=== PATIENT | male | born 1965 | race African-American/Black ===

== ENCOUNTER 2022-08-22 12:04 | Outpatient (REF) | payer OTHER, SELFPAY ==
[2022-08-22 12:57] LABS: Hematocrit 43.6 % (42.0-52.0); Hemoglobin 14.4 g/dl (14.0-18.0); Mean Corpuscular Hemoglobin 30.1 pg (27.0-33.0); Mean Platelet Volume 8.8 fL (9.4-12.4); Platelet Count 350 X10*3/uL (160-400); Red Blood Count 4.79 X10*6/uL (4.60-5.80); Red Cell Distribution Width 15.8 % (11.0-16.0)
[2022-08-22 13:28] LABS: Alanine Aminotransferase 23 U/L (0-40); Albumin Level 4.3 g/dL (3.5-5.0); Alkaline Phosphatase 65 U/L (39-117); Anion Gap 16 (12-20); Aspartate Amino Transferase 20 U/L (5-37); Bilirubin Total 0.3 mg/dL (0.0-1.0); Blood Urea Nitrogen 10 mg/dL (9-16); Calcium 9.8 mg/dL (8.4-10.2); Carbon Dioxide 27 mmol/L (22-29); Chloride 101 mmol/L (96-108); Cholesterol 229 mg/dL; Estimated Glomerular Filt Rate > 60; Glucose Fasting 90 mg/dL (60-99); HDL Cholesterol 45 mg/dL; LDL Cholesterol Calculated 152 mg/dl; Sodium 139 mmol/L (135-145); Total Protein 7.4 g/dL (6.5-8.0); Triglycerides 163 mg/dL
[2022-08-22 13:41] LABS: Prostate Specific Antigen Scr 1.13 ng/mL (<0.05-4.0); TSH reflex Free T4 1.15 uIU/mL (0.32-4.0)
== END 2022-08-22 12:05 | disposition home or self-care (01) ==
LOC: HO.LAB 12:04
PROVIDERS: PCP Internal Medicine; Visit Provider Physician Assistant
DX: Z12.5 Encounter for screening for malignant neoplasm of prostate (principal); Z13.220 Encounter for screening for lipoid disorders; Z13.29 Encounter for screening for other suspected endocrine disorder
CPT/HCPCS: 36415; 80053; 80061; 84153; 84443; 85027

== ENCOUNTER → 2022-10-08 14:01 | Outpatient (BNVA) | payer OTHER, SELFPAY | PROVIDERS: PCP Internal Medicine; Visit Provider Urology | DX: L29.1 Pruritus scroti (principal); L72.3 Sebaceous cyst; N30.10 Interstitial cystitis (chronic) without hematuria | CPT/HCPCS: 99202 ==

== ENCOUNTER 2022-11-24 08:54 | Day surgery (SDC) | payer OTHER, SELFPAY ==
[2022-11-24] VITALS (8 sets, daily range): BP systolic 88–135; BP diastolic 51–84; PULSE 81–95; RESP 12–16; TEMP 36.4–36.9; O2SAT 94–96; BMI 35.6
--- NOTE | 2022-11-24 10:20 | P.CONAN_ITS ---
[facility] Active Problems Active Problems: All Active Problems (Updated 10/08/22 @ 14:44 by Chi Hernandez MD) Sebaceous cyst (Acute) Scrotal itching (Acute) Colon cancer screening (Acute) Annual physical exam (Acute) Hypercholesterolemia (Acute) BPH (benign prostatic hyperplasia) (Acute) Obese (Acute) Tobacco dependence (Acute) Plantar callus (Acute) Testicular cyst (Acute) DDD (degenerative disc disease), lumbar (Acute) Past Medical History Medical History BPH (benign prostatic hyperplasia) Low back pain Smoker Family History Family History Mother No problems noted. Father CVD (cardiovascular disease) FH: HTN (hypertension) Diabetes Gastric cancer Daughter Healthy female adolescent Brother Gastric cancer Family history of problems with anesthesia: No Surgical History Surgical History History of testicular surgery S/P hernia surgery History of Problems with Anesthesia: No Social History Social History Housing: Apartment Alcohol intake: never Patient Tobacco Use Status: Current everyday Tobacco user Cigarettes Per Day: 15 Years Smoked: 25 e-Cigarette/Vaping Use: Never Used Use of substances other than those prescribed or required for medical reasons: Yes Substance Use Type Other:: smoking Substance Use Frequency: Weekly Are you DNR?: No Advance Directives: No Advance Directives Information Provided: Yes service: No Current occupational status: employed and unemployed Cognitive needs: No Hearing needs: No Vision needs: No Meds Allergies Allergy/AdvReac Type Severity Reaction Status Date / Time bupropion [From WELLBUTRIN] Allergy Unknown SYNCOPE, Verified 11/21/22 09:01 SEIZURE Active Medications: Current Medications Lactated Ringer's (Lr) 1,000 mls @ 80 mls/hr IVCONT .[id number] GOLDY Exam Exam Date and Time: November 24, 2022 1020 Height,Weight and Vital Signs: Height 6 ft 1 in Weight 122.47 kg Airway Mallampati Class: II TM Dist: >3cm Neck ROM: Full Assessment and Plan Assessment Anesthesia Assessment: Anesthesia Plan Discussed and Chart Reviewed Final Anesthetic Review Family History of Problems with Anesthesia: No History of Problems with Anesthesia: No NPO: Yes ASA Class: II Final Preanesthetic Review: No Changes in Pt Med Stat, Meds/Allgs Chart Reviewed, Consent Obtained/Reviewed and Anes Risks/Benef Reviewed Patient Risk: Low Procedure Risk: Low Anesthetic Plan Anesthetic Plan: GA Disposition: Standard PACU
[2022-11-24] MEDS: Lactated Ringers 1,000 ML 80 ML IVCONT (10:44)
--- NOTE | 2022-11-24 12:43 | MHC.SHP ---
Pre-Procedural Eval Section A Date of Service: 11/24/22 The patient is an INPATIENT: No Changes since office visit: No Cold of Flu in the past 2 weeks, No New Medical Problems, No Changes in Medication and No Patient answered all questions The History & Physical has been completed within 30 days and I have reviewed it.: No Section B Chief Complaint: Sebaceous cyst Details of Present Illness: sebaceous cyst of scrotum Relevant Family History (Specify if Yes): No Relevant Social History: None Present Medications: see Short Stay Collaborative assessment Medical History: No relevant PMH History of Previous Operations: No relevant previous surgery Allergies: Allergies Allergy/AdvReac Type Severity Reaction Status Date / Time bupropion [From WELLBUTRIN] Allergy Unknown SYNCOPE, Verified 11/21/22 09:01 SEIZURE Review of Systems Sugical H&P ROS: Negative: Constitution, Cardiovascular, Respiratory, Neurological, Psychiatric, Hem-Onc, Allergic/Immunologic, Gastrointestinal, Genitourinary, Musculoskeletal, Integumentary, Endocrine and Eyes/Ears/Nose/Throat Exam Surgical H&P Exam: Normal: HEENT, Normal: Heart, Normal: Lungs, Normal: Extremities, Normal: Abdomen, Normal: Skin and Normal: Neurological Plan Diagnosis/Plan: Unchanged (sebaceous cyst removal) I have reviewed the history and physical and performed a pertinent physical examination on my patient. No changes have occurred unless specified. Time Spent With Patient Time: Total time managing care of this patient today ____ minutes.
--- NOTE | 2022-11-24 13:39 | P.OP_ITS ---
Operative Note Operative Note Date of Service: 11/24/22 Narrative: PreOperative Diagnosis: left scrotal cyst Post Operative Diagnosis: large left scrotal cyst Procedure: removal left scrotal cyst - 3.5 cm Surgeon: Dr Chi Hernandez Anesthesia: general Indications for procedure: large left scrotal cyst approximately 3.5 cm in superior portion of left scrotum. is mobile consistent with either a sebaceous cyst or question of lipoma. Procedure: After informed consent was verified the patient was brought to the operating room and placed in a supine position. Anesthesia was administered per protocol. The patient was prepped and draped in a sterile fashion. Safety pause time-out was performed. Antibiotics were given. Local anesthetic was injected for perioperative pain management. Injection consisted of bupivacaine and lidocaine. 1 1/2 in incision was made running on the lateral aspect of the cyst. Appears to have prior procedures therapies to be in all incision site directly above the cyst . Sharp dissection was taken to release the cyst from its surroundings. There was a thickened capsule. The cyst itself felt that it could be either a sebaceous cyst or lipoma. Once the cyst was removed the base of the cyst area was cauterized Trial bleeding. Single 3-0 Vicryl was placed to allow deep tissue apposition. Int errupted 4-0 chromics were used to reapproximate skin edges. No need for drain placement. He tolerated procedure well and after dressing was placed was extubated in operating room transferred in stable condition to the recovery area. Pathology: Cyst Drains: none
== END 2022-11-24 15:04 ==
LOC: HO.SSS 08:54
PROVIDERS: PCP Internal Medicine; Visit Provider Urology
PROC: (CPT 11424; principal; 2022-11-24 10:50)
DX: L72.3 Sebaceous cyst (principal); L29.1 Pruritus scroti; M54.50 Low back pain, unspecified; N40.0 Benign prostatic hyperplasia without lower urinary tract symptoms; Z79.899 Other long term (current) drug therapy; Z88.8 Allergy status to other drugs, medicaments and biological substances; F17.210 Nicotine dependence, cigarettes, uncomplicated; Z98.890 Other specified postprocedural states
CPT/HCPCS: 11424; 88304; J0690; J2250; J2405; J2795; J3010

== ENCOUNTER → 2023-01-06 13:29 | Outpatient (BNVA) | payer OTHER, SELFPAY | PROVIDERS: PCP Internal Medicine; Visit Provider Urology | DX: N32.0 Bladder-neck obstruction (principal); L72.3 Sebaceous cyst | CPT/HCPCS: 99212 ==

== ENCOUNTER 2023-05-07 12:25 | Outpatient (REF) | payer OTHER, SELFPAY ==
[2023-05-07 13:26] LABS: Estimated Average Glucose 114 mg/dL; Hemoglobin A1c % 5.6 %
[2023-05-07 13:29] LABS: Alanine Aminotransferase 16 U/L (0-40); Albumin Level 4.1 g/dL (3.5-5.0); Alkaline Phosphatase 64 U/L (39-117); Anion Gap 12 (12-20); Aspartate Amino Transferase 17 U/L (5-37); Bilirubin Total 0.5 mg/dL (0.0-1.0); Blood Urea Nitrogen 11 mg/dL (9-16); Calcium 9.6 mg/dL (8.4-10.2); Carbon Dioxide 25 mmol/L (22-29); Chloride 104 mmol/L (96-108); Cholesterol 222 mg/dL; Estimated Glomerular Filt Rate > 60; Glucose Random 94 mg/dL (60-115); HDL Cholesterol 37 mg/dL; LDL Cholesterol Calculated 159 mg/dl; Potassium 4.4 mmol/L (3.3-5.1); Sodium 137 mmol/L (135-145); Total Protein 7.5 g/dL (6.5-8.0); Triglycerides 133 mg/dL
== END 2023-05-07 12:26 | disposition home or self-care (01) ==
LOC: HO.LAB 12:25
PROVIDERS: PCP Internal Medicine; Visit Provider Internal Medicine
DX: E78.00 Pure hypercholesterolemia, unspecified (principal); E66.9 Obesity, unspecified
CPT/HCPCS: 36415; 80053; 80061; 83036

== ENCOUNTER 2023-09-22 16:05 | Outpatient (AMB) | payer OTHER, SELFPAY ==
[2023-09-22 16:06] VITALS: BP 180/120; PULSE 92; O2SAT 98; BMI 34.0
--- NOTE | 2023-09-22 16:06 | MHC.PC.OV ---
Vital Signs 09/22/23 16:06 09/22/23 16:26 Height 6 ft 1 in Weight 258 lb BMI 34.0 BP 180/120 H 160/100 H Blood Pressure Location Lt brachial Lt brachial Position Sitting Sitting Pulse 92 Pulse Source Pulse Oximeter Pulse Oximetry (%) 98 Oxygen Delivery Method Room Air Intake Visit Reasons: PE/ 3months f/u Senior Business Manager Required: No Spare Parts Clerk: Not Required per policy Accompanied by: Self / Same As Patient Allergies bupropion [From WELLBUTRIN] Allergy (Unknown, Verified 09/22/23 16:07) SYNCOPE, SEIZURE Medication List - Last Reconciled 09/22/23 by Wallace Esparza MD ibuprofen 800 mg PO Q8H PRN nicotine (polacrilex) 4 mg buccal Q2H Tobacco use date assessed: 05/11/23 Dental Screening Dental Screen Date: 09/22/23 Did you have a dental visit in the last 12 months?: No Did you have a dental problem in the last 6 months where you did not have access to dental care?: No Was dental information given to patient?: Patient has dentist HPI PE/ 3months f/u HPI Details 58-year-old obese male smoker with a history of lumbar degenerative disc disease hypercholesterolemia BPH last seen in April 2023 advised colonoscopy. Patient is here for physical exam. Patient 's brother still . syncope 11/2022 and 02/2023. - [facility] smokes marijuana. coughs at night Patient walked here and no chest pain- PFSH Medical History Tobacco dependence Bladder outlet obstruction BPH (benign prostatic hyperplasia) Low back pain Smoker Surgical History S/P hernia surgery History of testicular surgery Family History (Updated 09/22/23 @ 16:30 by Wallace Esparza MD) Mother No problems noted. Father CVD (cardiovascular disease) FH: HTN (hypertension) Diabetes Gastric cancer Daughter Healthy female adolescent Brother Gastric cancer Maternal Grandfather Lung cancer Social History (Updated 09/22/23 @ 16:31 by Wallace Esparza MD) Housing: Apartment Alcohol intake: never Patient Tobacco Use Status: Former Tobacco user Tobacco use type: Cigarette Cigarettes Per Day: 15 Years Smoked: 25- stopped 02/2023 e-Cigarette/Vaping Use: Never Used service: No Current occupational status: employed and unemployed Cognitive needs: No Hearing needs: No Vision needs: No Questionnaire PHQ-9 Over the last 2 weeks, how often have you been bothered by any of the following problems? 1. Little interest or pleasure in doing things: not at all 2. Feeling down, depressed, or hopeless: not at all 3. Trouble falling or staying asleep, or sleeping too much: not at all 4. Feeling tired or having little energy: not at all 5. Poor appetite or overeating: not at all 6. Feeling bad about yourself - or that you are a failure or have let yourself or your family down: not at all 7. Trouble concentrating on things, such as reading the newspaper or watching television: not at all 8. Moving or speaking so slowly that other people could have noticed. Or the opposite - being so fidgety or restless that you have been moving around a lot more than usual: not at all 9. Thoughts that you would be better off or of hurting yourself in some way: not at all Total score: 0 Depression Screening Interpretation: Negative Depression Screening Done: Yes Source: Developed by Drs. Prieto Beltran, Avril Trejo, Quinton Kunz and colleagues, with an educational lissette from [employer]. Thrive Questionnaire Date Thrive assessed: 12/22/22 AUDIT C Alcohol Use Questionnaire (AUDIT-C) 1. How often do you have a drink containing alcohol?: Never 3. How often do you have six or more drinks on one occasion?: Never Total Score: 0 ARGENTINA-7 AMB Questionnaire ARGENTINA-7 Date ARGENTINA - 7 assessed: 12/22/22 Source: Developed by Drs. Prieto Beltran, Avril Trejo, Quinton Kunz and colleagues, with an educational lissette from [employer]. Review of Systems Const Denies poor appetite and Denies weakness Eyes Denies no additional complaints ENT Reports Normal hearing present, Denies dizziness, Denies nasal congestion, Denies tinnitus and Denies sore throat Card Denies chest pain, Denies syncope, Denies rapid heart rate and Denies dyspnea Resp Denies cough and Denies dyspnea GI Denies change in stool character, Reports constipation, Denies diarrhea, Denies nausea and Denies vomiting Denies dysuria and Denies urinary frequency Neuro Reports Normal hearing present, Denies confusion, Denies dizziness, Denies syncope and Denies weakness Psych Denies confusion Physical exam (Primary Care) Vital Signs: Last Vital Signs Pulse 92 09/22/23 16:06 BP 180/120 H 09/22/23 16:06 Pulse Ox 98 09/22/23 16:06 Oxygen Delivery Method Room Air 09/22/23 16:06 BMI result Body Mass Index 34.0 Tobacco/Smoking Status: Tobacco use Status Tobacco use date assessed 05/11/23 09/22/23 16:12 Patient Tobacco Use Status Former Tobacco user 09/22/23 16:12 Tobacco use type Cigarette 09/22/23 16:12 e-Cigarette/Vaping Use Never Used 09/22/23 16:12 PHQ-9: PHQ-9 Score PHQ-9: Total score 0 09/22/23 16:12 Depression Screening Interpretation: Negative Thrive Assessment: Date of Thrive Assessment Date Thrive assessed 12/22/22 09/22/23 16:12 Const General: alert and awake; No confusion Orientation/consciousness: No confusion HENMT Head: Yes normocephalic Ears: external ears normal and TM's normal bilaterally Face and sinus: Yes normal facial exam Mouth: moist mucous membranes Throat: Yes tonsils normal Eyes Conjunctivae: conjunctivae normal Pupils: Equal, round and reactive pupils present and Pupil accommodation reflex normal Direct Ophthalmoscopy: normal light reflex Neck Neck: No lymphadenopathy Thyroid: Thyroid normal Chest Chest palpation & inspection: normal inspection of the chest Resp Effort & Inspection: normal respiratory effort and no audible wheezes Auscultation: clear to auscultation bilaterally, no crackles, no wheezes and lung sounds not diminished Cardio Rate: regular rate Rhythm: regular rhythm Peripheral pulses: radial pulses present and dorsalis pedis present GI Other: Declined rectal exam Palpation (GI): no masses Auscultation: normal bowel sounds and normoactive bowel sounds Rectal Exam - Male: Yes deferred Male General Exam: Yes normal external exam Skin General skin exam: no rashes or lesions noted Rashes: no rashes Neuro General: deep tendon reflexes 2+ bilaterally and No confusion Cranial nerves: Yes Equal, round and reactive pupils present, Yes Midline tongue present, Yes Normal hearing present and Yes Ability to bilaterally elevate shoulders present Cognition (Neuro): normal cognition Gait exam (Neuro): Normal gait present Motor exam (neuro): 5/5 motor strength present throughout Deep tendon reflexes (DTR's): Right brachioradialis reflex intensity grade: 2+, Left brachioradialis reflex intensity grade: 2+, Right patellar reflex intensity grade: 2+ and Left patellar reflex intensity grade: 2+ Extrem General: No edema Assessment and Plan Assessment & Plan (1) Annual physical exam: Code(s): Z00.00 - Encounter for general adult medical examination without abnormal findings (2) Obese: Code(s): E66.9 - Obesity, unspecified Qualifiers: Obesity type: due to excess calories Obesity classification: adult class 1 (BMI 30 - 34.9) Serious obesity comorbidity presence: without serious comorbidity Body mass index: BMI 33.0-33.9 Qualified Code(s): E66.09 - Other obesity due to excess calories; Z68.33 - Body mass index [BMI] 33.0-33.9, adult Plan: Diet and exercise (3) Blood pressure elevated without history of HTN: Code(s): R03.0 - Elevated blood-pressure reading, without diagnosis of hypertension Plan: Advised patient to monitor blood pressure (4) Hypercholesterolemia: Code(s): E78.00 - Pure hypercholesterolemia, unspecified Plan: Avoid fried foods, chicken skin, eggs, butter margarine, pastries and meat. Be it pork or beef they have a lot of cholesterol LDL goal of less than 130 and triglyceride of less than 150 (5) BPH (benign prostatic hyperplasia): Code(s): N40.0 - Benign prostatic hyperplasia without lower urinary tract symptoms (6) Colon cancer screening: Code(s): Z12.11 - Encounter for screening for malignant neoplasm of colon (7) Syncope: Code(s): R55 - Syncope and collapse Orders: Orders XR chest 2V Today R03.0 - Elevated blood-pressure reading, without diagnosis of hypertension ECG 12 lead EKG Today R55 - Syncope and collapse Referrals Gastroenterology Referral Z12.11 - Encounter for screening for malignant neoplasm of colon Medications: Refilled nicotine (polacrilex) 4 mg buccal Q2H 110 ea 0RF F17.200 - Nicotine dependence, unspecified, uncomplicated Coding Level of Care Code Est Pt Prev Care 40-64y(79347) Diagnoses Annual physical exam Z00.00 Class 1 obesity due to excess calories without serious comorbidity with body mass index (BMI) of 33.0 to 33.9 in adult E66.09; Z68.33 Obesity type: due to excess calories Obesity classification: adult class 1 (BMI 30 - 34.9) Serious obesity comorbidity presence: without serious comorbidity Body mass index: BMI 33.0-33.9 Blood pressure elevated without history of HTN R03.0 Hypercholesterolemia E78.00 BPH (benign prostatic hyperplasia) N40.0 Colon cancer screening Z12.11 Syncope R55
[2023-09-22 16:26] VITALS: BP 160/100
== END 2023-09-22 16:58 | disposition home or self-care (01) ==
PROVIDERS: Visit Provider Internal Medicine
DX: Z00.00 Encounter for general adult medical examination without abnormal findings (principal); E66.09 Other obesity due to excess calories; Z68.33 Body mass index [BMI] 33.0-33.9, adult; R03.0 Elevated blood-pressure reading, without diagnosis of hypertension; E78.00 Pure hypercholesterolemia, unspecified; N40.0 Benign prostatic hyperplasia without lower urinary tract symptoms; Z12.11 Encounter for screening for malignant neoplasm of colon; R55 Syncope and collapse
CPT/HCPCS: 99396

== ENCOUNTER 2023-12-03 09:01 | Outpatient (REF) | payer OTHER, SELFPAY ==
--- NOTE | ~2023-12-03 | XR_ITS ---
EXAMINATION: XR CHEST 2 VIEWS CLINICAL INFORMATION: Elevated blood pressure. COMPARISON: Chest radiographs dated 02/05/2018. TECHNIQUE: Frontal and lateral views of the chest were obtained. FINDINGS: The heart, great vessels, pulmonary vasculature and mediastinum are normal. The lungs show no focal infiltrate, effusion or pneumothorax. There is no acute osseous abnormality. XR/XR chest 2V IMPRESSION: No active cardiopulmonary disease.
--- NOTE | 2023-12-03 09:07 | ECG_ITS ---
Test Reason : SYNCOPE Blood Pressure : / mmHG Vent. Rate : 087 BPM Atrial Rate : 087 BPM P-R Int : 166 ms QRS Dur : 096 ms QT Int : 378 ms P-R-T Axes : 076 043 073 degrees QTc Int : 454 ms Normal sinus rhythm Normal ECG No previous ECGs available Referred By: Wallace Esparza Electronically Signed By:ELLYN MCKEON
[2023-12-03 09:31] LABS: MANUAL DIFF FLAG NO
[2023-12-03 10:43] LABS: Basophils Percent Auto 0.4 % (0-2); Eosinophils Absolute Auto 0.2 X10*3/uL (0.0-0.4); Eosinophils Percent Auto 3.1 % (0-4); Hematocrit 47.8 % (42.0-52.0); Hemoglobin 15.6 g/dl (14.0-18.0); Imm Gran Abs Auto 0.02 X10*3/uL (0.00-0.03); Imm Gran Pct Auto 0.3 % (0.0-0.4); Lymphocytes Absolute Auto 2.1 X10*3/uL (1.2-4.9); Lymphocytes Percent Auto 27.8 % (20-40); Mean Corpuscular HGB Conc 32.6 g/dl (31.0-36.0); Mean Corpuscular Hemoglobin 29.7 pg (27.0-33.0); Monocytes Absolute Auto 0.7 X10*3/uL (0.1-1.2); Monocytes Percent Auto 9.2 % (2-11); Neutrophils Absolute Auto 4.5 x10*3/uL (2.0-8.3); Neutrophils Percent Auto 59.2 % (45-73); Platelet Count 358 X10*3/uL (160-400); Red Blood Count 5.25 X10*6/uL (4.60-5.80); Red Cell Distribution Width 14.9 % (11.0-16.0); White Blood Count 7.5 X10*3/uL (4.8-10.8)
[2023-12-03 11:19] LABS: Alanine Aminotransferase 23 U/L (0-40); Albumin Level 4.3 g/dL (3.5-5.0); Alkaline Phosphatase 74 U/L (39-117); Anion Gap 12 (12-20); Aspartate Amino Transferase 20 U/L (5-37); Bilirubin Total 0.3 mg/dL (0.0-1.0); Blood Urea Nitrogen 13 mg/dL (9-16); Calcium 9.9 mg/dL (8.4-10.2); Carbon Dioxide 30 mmol/L (22-29); Chloride 103 mmol/L (96-108); Cholesterol 196 mg/dL (<200); Estimated Glomerular Filt Rate > 60; Glucose Random 105 mg/dL (60-115); HDL Cholesterol 40 mg/dL (>40); LDL Cholesterol Calculated 128 mg/dL (<100); Potassium 4.9 mmol/L (3.3-5.1); Sodium 140 mmol/L (135-145); Triglycerides 143 mg/dL (<150)
[2023-12-03 11:34] LABS: Free T4 (Free Thyroxine) 0.98 ng/dL (0.71-1.85); Thyroid Stimulating Hormone 1.19 uIU/mL (0.32-4.0)
[2023-12-03 11:46] LABS: Prostate Specific Antigen Scr 0.65 ng/mL (<0.05-4.0); Vitamin B12 310 pg/mL (200-900)
== END 2023-12-03 09:02 | disposition home or self-care (01) ==
LOC: HO.XRAY 09:01
PROVIDERS: PCP Internal Medicine; Visit Provider Internal Medicine
DX: N40.0 Benign prostatic hyperplasia without lower urinary tract symptoms (principal); E78.00 Pure hypercholesterolemia, unspecified; R03.0 Elevated blood-pressure reading, without diagnosis of hypertension; R55 Syncope and collapse; Z12.5 Encounter for screening for malignant neoplasm of prostate
CPT/HCPCS: 36415; 71046; 80053; 80061; 82607; 82746; 84153; 84439; 84443; 85025; 93005

== ENCOUNTER → 2023-12-03 09:07 | Outpatient (BNV) | payer OTHER, SELFPAY | PROVIDERS: PCP Internal Medicine; Visit Provider Internal Medicine | DX: R55 Syncope and collapse (principal) | CPT/HCPCS: 93010 ==

== ENCOUNTER 2023-12-07 15:35 | Outpatient (AMB) | payer OTHER, SELFPAY ==
[2023-12-07 15:43] VITALS: BP 152/80; PULSE 87; O2SAT 96; BMI 33.8
--- NOTE | 2023-12-07 15:43 | MHC.PC.OV ---
Vital Signs 12/07/23 15:43 12/07/23 16:04 Height 6 ft 1 in Weight 256 lb BMI 33.8 BP 152/80 H 136/86 Blood Pressure Location Lt brachial Lt brachial Position Sitting Sitting Pulse 87 Pulse Source Pulse Oximeter Pulse Oximetry (%) 96 Oxygen Delivery Method Room Air Intake Visit Reasons: BP elevated, cholesterol Allergies bupropion [From WELLBUTRIN] Allergy (Unknown, Verified 09/22/23 16:07) SYNCOPE, SEIZURE Medication List - Last Reconciled 12/07/23 by Wallace Esparza MD ibuprofen 800 mg PO Q8H PRN nicotine (polacrilex) 2 mg buccal Q2H Tobacco use date assessed: 12/07/23 HPI BP elevated, cholesterol HPI Details 58-year-old obese male with a history of hypercholesterolemia BPH last seen in September 2023. Patient had an elevated blood pressure is here for follow-up. Chest x-ray done negative EKG normal sinus rhythm. Blood work done. Patient is still on the nicotine gum but has not smoked- PFS Medical History Tobacco dependence Bladder outlet obstruction BPH (benign prostatic hyperplasia) Low back pain Smoker Surgical History S/P hernia surgery History of testicular surgery Family History (Updated 09/22/23 @ 16:30 by Wallace Esparza MD) Mother No problems noted. Father CVD (cardiovascular disease) FH: HTN (hypertension) Diabetes Gastric cancer Daughter Healthy female adolescent Brother Gastric cancer Maternal Grandfather Lung cancer Social History (Updated 09/22/23 @ 16:31 by Wallace Esparza MD) Housing: Apartment Alcohol intake: never Patient Tobacco Use Status: Former Tobacco user Tobacco use type: Cigarette Cigarettes Per Day: 15 Years Smoked: 25- stopped 02/2023 Packs per year/per ci.00 e-Cigarette/Vaping Use: Never Used service: No Current occupational status: employed and unemployed Cognitive needs: No Hearing needs: No Vision needs: No Questionnaire Thrive Questionnaire Date Thrive assessed: 12/22/22 AUDIT C Alcohol Use Questionnaire (AUDIT-C) 1. How often do you have a drink containing alcohol?: Never 3. How often do you have six or more drinks on one occasion?: Never Total Score: 0 ARGENT[place]-7 AMB Questionnaire ARGENTINA-7 Date ARGENT[place] - 7 assessed: 12/22/22 Source: Developed by Drs. Prieto Beltran, Avril Trejo, Quinton Kunz and colleagues, with an educational lissette from [employer]. Physical exam (Primary Care) Vital Signs: Last Vital Signs Pulse 87 12/07/23 15:43 BP 136/86 12/07/23 16:04 Pulse Ox 96 12/07/23 15:43 Oxygen Delivery Method Room Air 12/07/23 15:43 BMI result Body Mass Index 33.8 Tobacco/Smoking Status: Tobacco use Status Tobacco use date assessed 12/07/23 12/07/23 15:47 Patient Tobacco Use Status Former Tobacco user 12/07/23 15:47 Tobacco use type Cigarette 12/07/23 15:47 e-Cigarette/Vaping Use Never Used 12/07/23 15:47 Thrive Assessment: Date of Thrive Assessment Date Thrive assessed 12/22/22 12/07/23 15:47 Const General: alert; No acute distress Eyes Conjunctivae: conjunctivae normal Resp Auscultation: clear to auscultation bilaterally Cardio Rate: regular rate Rhythm: regular rhythm GI Inspection: Yes normal to inspection Extrem General: Yes normal to inspection and No edema Assessment and Plan Assessment & Plan (1) Blood pressure elevated without history of HTN: Code(s): R03.0 - Elevated blood-pressure reading, without diagnosis of hypertension Plan: Advised to continue monitoring blood pressure (2) Hypercholesterolemia: Code(s): E78.00 - Pure hypercholesterolemia, unspecified Plan: Avoid fried foods, chicken skin, eggs, butter margarine, pastries and meat. Be it pork or beef they have a lot of cholesterol LDL goal of less than 130 and triglyceride of less than 150. Repeat testing is normal (3) Obese: Code(s): E66.9 - Obesity, unspecified Qualifiers: Body mass index: BMI 33.0-33.9 Obesity classification: adult class 1 (BMI 30 - 34.9) Obesity type: due to excess calories Serious obesity comorbidity presence: without serious comorbidity Qualified Code(s): E66.09 - Other obesity due to excess calories; Z68.33 - Body mass index [BMI] 33.0-33.9, adult Plan: Diet and exercise Medications: Changed From nicotine (polacrilex) 4 mg buccal Q2H 110 ea 0RF F17.200 - Nicotine dependence, unspecified, uncomplicated To nicotine (polacrilex) 2 mg buccal Q2H 100 ea 0RF F17.200 - Nicotine dependence, unspecified, uncomplicated Coding Level of Care Code Est Pt Level 4 (14559) Diagnoses Blood pressure elevated without history of HTN R03.0 Hypercholesterolemia E78.00 Class 1 obesity due to excess calories without serious comorbidity with body mass index (BMI) of 33.0 to 33.9 in adult E66.09; Z68.33 Body mass index: BMI 33.0-33.9 Obesity classification: adult class 1 (BMI 30 - 34.9) Obesity type: due to excess calories Serious obesity comorbidity presence: without serious comorbidity
[2023-12-07 16:04] VITALS: BP 136/86
== END 2023-12-07 16:12 | disposition home or self-care (01) ==
PROVIDERS: PCP Internal Medicine; Visit Provider Internal Medicine
DX: R03.0 Elevated blood-pressure reading, without diagnosis of hypertension (principal); E78.00 Pure hypercholesterolemia, unspecified; E66.09 Other obesity due to excess calories; Z68.33 Body mass index [BMI] 33.0-33.9, adult
CPT/HCPCS: 99214

== ENCOUNTER 2024-09-23 15:46 | Outpatient (AMB) | payer OTHER, SELFPAY ==
--- NOTE | 2024-09-23 15:57 | A.OFFPC_ITS ---
Vital Signs 09/23/24 15:59 09/23/24 16:33 Height 6 ft 1 in Weight 268 lb BMI 35.4 BP 140/90 H 144/90 H Blood Pressure Location Lt brachial Lt brachial Position Sitting Sitting Pulse 101 H Pulse Source Pulse Oximeter Pulse Oximetry (%) 97 Oxygen Delivery Method Room Air Intake Visit Reasons: PE Intake Note: Patient is here today for a physical. Pt decline flu shot today. Welfare Project Manager Required: No Housekeeper Home: Not Required per policy Accompanied by: Self / Same As Patient Allergies bupropion [From WELLBUTRIN] Allergy (Unknown, Verified 09/23/24 15:58) SYNCOPE, SEIZURE Medication List - Last Reconciled 09/23/24 by Wallace Esparza MD hydrochlorothiazide 12.5 mg PO DAILY nicotine (polacrilex) 4 mg buccal Q2H Tobacco use date assessed: 09/23/24 Dental Screening Dental Screen Date: 09/23/24 Did you have a dental visit in the last 12 months?: No Did you have a dental problem in the last 6 months where you did not have access to dental care?: No Was dental information given to patient?: No HPI PE HPI Details 59-year-old obese male with BPH hypercho lesterolemia coming in for follow-up. Last seen in November noted have an elevated blood pressure is here for physical exam PFSH Medical History Tobacco dependence Bladder outlet obstruction BPH (benign prostatic hyperplasia) Low back pain Smoker Surgical History S/P hernia surgery History of testicular surgery Family History (Updated 09/23/24 @ 16:37 by Wallace Esparza MD) Mother No problems noted. Father CVD (cardiovascular disease) FH: HTN (hypertension) Diabetes Gastric cancer Daughter Healthy female adolescent Brother Gastric cancer CVD (cardiovascular disease) Maternal Grandfather Lung cancer Social History (Updated 09/23/24 @ 16:38 by Wallace Esparza MD) Housing: Apartment Alcohol intake: never Patient Tobacco Use Status: Former Tobacco user Tobacco use type: Cigarette Cigarettes Per Day: 15 Years Smoked: 25- stopped 02/2023,smoking marijuana e-Cigarette/Vaping Use: Never Used Second Hand Smoke Exposure: Yes service: No Current occupational status: employed and unemployed Cognitive needs: No Hearing needs: No Vision needs: No Questionnaire PHQ-9 Over the last 2 weeks, how often have you been bothered by any of the following problems? 1. Little interest or pleasure in doing things: not at all 2. Feeling down, depressed, or hopeless: not at all 3. Trouble falling or staying asleep, or sleeping too much: not at all 4. Feeling tired or having little energy: not at all 5. Poor appetite or overeating: not at all 6. Feeling bad about yourself - or that you are a failure or have let yourself or your family down: not at all 7. Trouble concentrating on things, such as reading the newspaper or watching television: not at all 8. Moving or speaking so slowly that other people could have noticed. Or the opposite - being so fidgety or restless that you have been moving around a lot more than usual: not at all 9. Thoughts that you would be better off or of hurting yourself in some way: not at all Total score: 0 Depression Screening Interpretation: Negative Depression Screening Done: Yes Source: Developed by Drs. Prieto Beltran, Avril Trejo, Quinton Kunz and colleagues, with an educational lissette from [employer]. Thrive Questionnaire Date Thrive assessed: 09/23/24 I am a: Patient What is your living situation today?: I have a steady place to live Within the past 12 months, did the food you bought not last and you didn't have the money to get more?: Never true Within the past 12 months, did you worry whether your food would run out before you got money to buy more?: Never true Do you have trouble paying for medicines?: No Do you have trouble getting transportation to medical appointments?: No Do you have trouble paying your heating and electricity bill?: No Do you have trouble taking care of your child, family member or friend?: No Do you have trouble with day-to-day activities such as bathing, preparing meals, shopping, managing finances, etc.?: No Are you currently unemployed and looking for a job?: No Are you interested in more education?: No Please select the resources that you would like help with: None Currently or been in a relationship where the following occur: No concerns reported THRIVE Score: 0 AUDIT C Alcohol Use Questionnaire (AUDIT-C) 1. How often do you have a drink containing alcohol?: Never Total Score: 0 ARGENTINA-7 AMB Questionnaire ARGENTINA-7 Date ARGENTINA - 7 assessed: 09/23/24 Feeling nervous, anxious, or on edge: 0 = Not at all Not being able to stop or control worryin = Not at all Worrying too much about different things: 0 = Not at all Trouble relaxin = Not at all Being so restless that it is hard to sit still: 0 = Not at all Becoming easily annoyed or irritable: 0 = Not at all Feeling afraid as if something awful might happen: 0 = Not at all Total ARGENT[place]-7 score (0-4 normal; 5-9 mild; 10-14 moderate; 15-21 severe): 0 Source: Developed by Drs. Prieto Beltran, Avril Trejo, Quinton Kunz and colleagues, with an educational lissette from [employer]. Review of Systems Const Denies poor appetite and Denies weakness Eyes Denies no additional complaints ENT Reports Normal hearing present, Denies dizziness, Denies nasal congestion, Denies tinnitus and Denies sore throat Card Denies chest pain, Denies syncope, Denies rapid heart rate and Denies dyspnea Resp Denies cough and Denies dyspnea GI Denies change in stool character, Reports constipation, Denies diarrhea, Denies nausea and Denies vomiting Denies dysuria and Denies urinary frequency Neuro Reports Normal hearing present, Denies confusion, Denies dizziness, Denies syncope and Denies weakness Psych Denies confusion Physical exam (Primary Care) Vital Signs: Last Vital Signs Pulse 101 H 09/23/24 15:59 BP 144/90 H 09/23/24 16:33 Pulse Ox 97 09/23/24 15:59 Oxygen Delivery Method Room Air 09/23/24 15:59 BMI result Body Mass Index 35.4 Tobacco/Smoking Status: Tobacco use Status Tobacco use date assessed 09/23/24 09/23/24 16:03 Patient Tobacco Use Status Former Tobacco user 09/23/24 16:38 Tobacco use type Cigarette 09/23/24 16:38 e-Cigarette/Vaping Use Never Used 09/23/24 16:38 PHQ-9: PHQ-9 Score PHQ-9: Total score 0 09/23/24 16:29 Depression Screening Interpretation: Negative Thrive Assessment: Date of Thrive Assessment Date Thrive assessed 09/23/24 09/23/24 16:03 Currently or been in a relationship where the following occur: No concerns reported Const General: No confusion Orientation/consciousness: No confusion HENMT Head: Yes normocephalic Ears: external ears normal and TM's normal bilaterally Face and sinus: Yes normal facial exam Mouth: moist mucous membranes Throat: Yes tonsils normal Eyes Conjunctivae: conjunctivae normal Pupils: Equal, round and reactive pupils present and Pupil accommodation reflex normal Direct Ophthalmoscopy: normal light reflex Neck Neck: No lymphadenopathy Thyroid: Thyroid normal Chest Chest palpation & inspection: normal inspection of the chest Resp Effort & Inspection: normal respiratory effort and no audible wheezes Auscultation: clear to auscultation bilaterally, no crackles, no wheezes and lung sounds not diminished Cardio Rate: regular rate Rhythm: regular rhythm Peripheral pulses: radial pulses present and dorsalis pedis present GI Other: declined Palpation (GI): no masses Auscultation: normal bowel sounds and normoactive bowel sounds Rectal Exam - Male: Yes deferred Male General Exam: Yes normal external exam Skin General skin exam: no rashes or lesions noted Rashes: no rashes Neuro General: No confusion Cranial nerves: Yes Equal, round and reactive pupils present and Yes Normal hearing present Cognition (Neuro): normal cognition Gait exam (Neuro): Normal gait present Motor exam (neuro): 5/5 motor strength present throughout Deep tendon reflexes (DTR's): Right brachioradialis reflex intensity grade: 2+, Left brachioradialis reflex intensity grade: 2+, Right patellar reflex intensity grade: 2+ and Left patellar reflex intensity grade: 2+ Extrem General: No edema Coding Level of Care Code Est Pt Prev Care 40-64y(65522) Diagnoses Annual physical exam Z00.00 Class 1 obesity due to excess calories without serious comorbidity with body mass index (BMI) of 33.0 to 33.9 in adult E66.09; Z68.33 Body mass index: BMI 33.0-33.9 Obesity classification: adult class 1 (BMI 30 - 34.9) Obesity type: due to excess calories Serious obesity comorbidity presence: without serious comorbidity Colon cancer screening Z12.11 Hypercholesterolemia E78.00 Elevated blood sugar R73.9 Primary hypertension I10 Hypertension type: primary hypertension Assessment & Plan Assessment & Plan (1) Annual physical exam: Code(s): Z00.00 - Encounter for general adult medical examination without abnormal findings Category: Medical Plan: Patient is advised to eat healthy, keep well hydrated, keep active and have adequate sleep. (2) Obese: Code(s): E66.9 - Obesity, unspecified Category: Medical Qualifiers: Body mass index: BMI 33.0-33.9 Obesity classification: adult class 1 (BMI 30 - 34.9) Obesity type: due to excess calories Serious obesity comorbidity presence: without serious comorbidity Qualified Code(s): E66.09 - Other obesity due to excess calories; Z68.33 - Body mass index [BMI] 33.0-33.9, adult Plan: Diet and exercise (3) Colon cancer screening: Code(s): Z12.11 - Encounter for screening for malignant neoplasm of colon Category: Medical Plan: Reminded about colonoscopy. (4) Hypercholesterolemia: Code(s): E78.00 - Pure hypercholesterolemia, unspecified Category: Medical Plan: Avoid fried foods, chicken skin, eggs, butter margarine, pastries and meat. Be it pork or beef they have a lot of cholesterol from the last blood work has been good. (5) Elevated blood sugar: Code(s): R73.9 - Hyperglycemia, unspecified Category: Medical Plan: Decrease the amount of carbohydrate intake, pasta, bread, rice and potatoes are all sugar and that is aside from all the sweet stuff, remember that fruits are good but they are Sweet also. (6) Hypertension: Code(s): I10 - Essential (primary) hypertension Category: Medical Qualifiers: Hypertension type: primary hypertension Qualified Code(s): I10 - Essential (primary) hypertension Plan: Patient is started on blood pressure medication Orders: Orders Thyroid Stimulating Hormone Today R73.9 - Hyperglycemia, unspecified Prostate Specific Antigen Scr Today R73.9 - Hyperglycemia, unspecified Complete Blood Count Auto Diff Today R73.9 - Hyperglycemia, unspecified Comprehensive Met. Panel Today R73.9 - Hyperglycemia, unspecified Free T4 (Free Thyroxine) Today R73.9 - Hyperglycemia, unspecified Hemoglobin A1c Today R73.9 - Hyperglycemia, unspecified Lipid Panel Today E78.00 - Pure hypercholesterolemia, unspecified, R73.9 - Hyperglycemia, unspecified Vitamin B12 and Folate Today R73.9 - Hyperglycemia, unspecified Referrals Gastroenterology Referral Z12.11 - Encounter for screening for malignant neoplasm of colon Medications: New hydrochlorothiazide 12.5 mg PO DAILY 30 tabs 3RF I10 - Essential (primary) hypertension Changed From nicotine (polacrilex) 2 mg buccal Q2H 100 ea 0RF F17.200 - Nicotine dependence, unspecified, uncomplicated To nicotine (polacrilex) 4 mg buccal Q2H 100 ea 0RF F17.200 - Nicotine dependence, unspecified, uncomplicated
[2024-09-23 15:59] VITALS: BP 140/90; PULSE 101; O2SAT 97; BMI 35.4
[2024-09-23 16:33] VITALS: BP 144/90
== END 2024-09-23 16:49 | disposition home or self-care (01) ==
LOC: HO.HMCH 15:46
PROVIDERS: PCP Internal Medicine; Visit Provider Internal Medicine
DX: Z00.00 Encounter for general adult medical examination without abnormal findings (principal); E66.09 Other obesity due to excess calories; Z68.33 Body mass index [BMI] 33.0-33.9, adult; Z12.11 Encounter for screening for malignant neoplasm of colon; E78.00 Pure hypercholesterolemia, unspecified; R73.9 Hyperglycemia, unspecified; I10 Essential (primary) hypertension

== ENCOUNTER → 2024-09-23 15:46 | Outpatient (BNVA) | payer OTHER, SELFPAY | PROVIDERS: PCP Internal Medicine; Visit Provider Internal Medicine | DX: Z00.00 Encounter for general adult medical examination without abnormal findings (principal); E66.09 Other obesity due to excess calories; Z68.33 Body mass index [BMI] 33.0-33.9, adult; E78.00 Pure hypercholesterolemia, unspecified; R73.9 Hyperglycemia, unspecified; I10 Essential (primary) hypertension; Z71.3 Dietary counseling and surveillance | CPT/HCPCS: 96127; 99396 ==

== ENCOUNTER 2025-01-06 10:10 | Outpatient (REF) | payer OTHER, SELFPAY ==
[2025-01-06 10:34] LABS: MANUAL DIFF FLAG NO
--- OUTSIDE RECORDS SUMMARY | 2025-01-06 10:54 | XMS_ITS ---
Author Organization [facility] Address [address] [place] [address] Care Team Providers Care Space Studies Faculty Member Name Role Phone Wallace Esparza Primary Care Provider Caroline Zamorano [phone] Cuevas Encounters Encounter Location Date Provider Diagnosis [address] [address] 01/03/2025 Caroline Hodges Plan Of Treatment Next Appt Details Provider Name:Caroline ying, 01/10/2025 01:00:00 PM, [address] [place], [address], Progress Notes * Ramón BUNNDOB:1965 (59 yo M)Acc No.[id number]:01/03/2025 Progress Note Patient:?Ramón BUNN Provider:?Caroline Hodges DPM :1965???Age:59 Y???Sex:Male John e:01/03/2025 Address:[address] [place] [address], [address], [place], [place] Pcp:Wallace Esparza Subjective: * Chief Complaints: * ???1. Dr Cuevas. * Medical History:? Objective: * Vitals:? Assessment: Plan: * Treatment: * Images: * The named appointment provid er may or may not be the originator of this progress note, and it is not deemed complete until electronically signed by the appointment provider. Sign off status: Pending * Provider:?Caroline Hodges DPM Date:? Generated for London ryder/Carlos/Leighton on:?01/06/2025 10:54 AM EST
--- OUTSIDE RECORDS SUMMARY | 2025-01-06 10:54 | XMS_ITS | Patient Health Record ---
Author Organization [facility] Address [address] [place] [address] Care Team Providers Care Financial Data Analyst Name Role Phone Wallace Esparza Primary Care Provider Caroline Zamorano Unavailable [phone] Allergies Allergen (clinical drug ingredient) Drug/Non Drug Allergy documented on EMR Reaction Allergy Type Onset Date Status Wellbutrin seizures Drug Allergy Active bupropion Bupropion Unknown Drug Allergy Active Latex Latex hives Allergy Active Reason For Referral No Information Medications Medication SIG (Take, Route, Frequency, Duration) Notes Start Date End Date Status traMADol HCl 50 MG 1 tablet as needed Orally Once a day Not-Taking Gabapentin 300 MG 1 capsule Orally Onc e a day for 30 day(s) Not-Taking Nicotine Polacrilex 2 MG Mouth/Throat for 8 Days Active Social History Tobacco Use: Social History Observation Description Date Details (start date - stop date) Former Smoker NA - NA Tobacco Use/Smoking Question Answer Notes Are you a: former smoker Additional Findings: Tobacco Non-User Current no n-smoker Alcohol Screen Question Answer Notes Did you have a drink containing alcohol in the p ast year? No Points 0 Interpretation Negative Tobacco use other than smoking: Question Answer Notes Are you an other tobacco user? No Problems Problem Type SNOMED Code ICD Code Onset Dates Problem Status W/U Status Risk Notes Problem [id number] Plantar wart (B07.0) Active confirmed Vital Signs Blood pressure diastolic 90 mm Hg 10/04/2024 Height 6ft1in in 10/04/2024 Blood pressure systolic 142 mm Hg 10/04/2024 Weight 250 lbs 10/04/2024 BMI 32.98 kg/m2 10/04/2024 Encounters Encounter Location Date Provider Diagnosis [facility] [address] [address] 03/29/2024 Caroline Hodges Tailor's bunion of left foot M21.622 ; Pain in left foot M79.672 ; Plantar wart B07.0 ; Metatarsalgia of left foot M77.42 and Metatarsalgia of right foot M77.[address] [address] 07/05/2024 Caroline Hodges Tailor's bunion of left foot M21.622 ; Pain in left foot M79.672 ; Plantar wart B07.0 ; Metatarsalgia of left foot M77.42 and Metatarsalgia of right foot M77.[address] [address] 10/04/2024 Caroline Hodges Tailor's bunion of left foot M21.622 ; Pain in left foot M79.672 ; Plantar wart B07.0 ; Metatarsalgia of left foot M77.42 and Metatarsalgia of right foot M77.41 Assessments Encounter Date Diagnosis (ICD Code) Assessment Notes Treatment Notes Treatment Clinical Notes Section Notes 03/29/2024 Pain in left foot (ICD-10 - M79.672) 03/29/2024 Tailor's bunion of left foot (ICD-10 - M21.622) 07/05/2024 Pain in left foot (ICD-10 - M79.672) 07/05/2024 Tailor's bunion of left foot (ICD-10 - M21.622) 10/04/2024 Tailor's bunion of left foot (ICD-10 - M21.622) 10/04/2024 Pain in left foot (ICD-10 - M79.672) 07/05/2024 Plantar wart (ICD-10 - B07.0) 03/29/2024 Plantar wart (ICD-10 - B07.0) 03/29/2024 Metatarsalgia of left foot (ICD-10 - M77.42) 07/05/2024 Metatarsalgia of left foot (ICD-10 - M77.42) 10/04/2024 Plantar wart (ICD-10 - B07.0) 10/04/2024 Metatarsalgia of left foot (ICD-10 - M77.42) 07/05/2024 Metatarsalgia of right foot (ICD-10 - M77.41) 03/29/2024 Metatarsalgia of right foot (ICD-10 - M77.41) 10/04/2024 Metatarsalgia of right foot (ICD-10 - M77.41) Plan Of Treatment Pending Test Test Name Order Date X ray : Foot, left 3V 07/01/2022 Next Appt Details Provider Name:Caroline ying, 01/10/2025 01:00:00 PM, [address] [place] [address], [address], Insurance Providers Payer Name Payer Address Payer Phone Subscriber Number Group Number Insured Name Patient Relationship to Insured Coverage Start Date Coverage End Date [facility] [employer] Claims [address] [facility] [place] [address] [phone] [id number] Ramón Bunn Self - patient is the insured Medical (General) History Medical History History ICD Code Degenerative Disc disease Back,Hip,and Knee pain Sciatica Warts Chicken pox Surgical History Surgery Date(Month/Year) inguinal hernia repair, right 1988 testicular cyst inguinal hernia repair, left 1993
--- OUTSIDE RECORDS SUMMARY | 2025-01-06 10:55 | XMS_ITS ---
Author Organization [facility] Address [address] [place] [address] Care Team Providers Care Welder 2Nd Shift Name Role Phone Wallace Esparza Primary Care Provider Caroline Zamorano Unavailable [phone] Allergies Allergen (clinical drug ingredient) Drug/Non Drug Allergy documented on EMR Reaction Allergy Type Onset Date Status Wellbutrin seizures Drug Allergy Active bupropion Bupropion Unknown Drug Allergy Active Latex Latex hives Allergy Active REASON FOR VISIT Wart(s), Foot Pain Medications Medication SIG (Take, Route, Frequency, Duration) [...] Additional Findings: Tobacco Non-User Current no n-smoker Tobacco use other than smoking: Question Answer Notes Are you an other tobacco user? No Vital Signs Height 6ft1in in 10/04/2024 Weight 250 lbs 10/04/2024 BMI 32.98 kg/m2 10/04/2024 Blood pressure systolic 142 mm Hg 10/04/20 24 Blood pressure diastolic 90 mm Hg 024 Encounters Encounter Location Date Provider Diagnosis [facility] [address] [place] [address] 10/04/2024 Caroline Hodges Tailor's bunion of left foot M21.622 ; Pain in left foot M79.672 ; Plantar wart B07.0 ; Metatarsalgia of left foot M77.42 and Metatarsalgia of right foot M77.41 Assessments Encounter Date Diagnosis (ICD Code) Assessment Notes Treatment Notes Treatment Clinical Notes Section Notes 10/04/2024 Tailor's bunion of left foot (ICD-10 - M21.622) 10/04/2024 Pain in left foot (ICD-10 - M79.672) 10/04/2024 Plantar wart (ICD-10 - B07.0) 10/04/2024 Metatarsalgia of left foot (ICD-10 - M77.42) 10/04/2024 Metatarsalgia of right foot (ICD-10 - M77.41) Plan Of Treatment Next Appt Details Follow Up: 3 Months, Reason: Provider Name:Caroline ying, 01/10/2025 01:00:00 PM, [address] [place] [address], [id number], Procedure Notes * Category Sub-Category Detail Notes Wart Treatment Procedure Verrucae(s) were debrided to pin-point bleeding margins with sterile surgical blade, silver nitrate chemocautery applied, recomm. immune-boosting meds such as zinc, recomm. follow up with topical chemosurgical agents, Pt defers any other forms of tx (57169) Progress Notes * Ramón BUNNDOB:1965 (59 yo M)Acc No.[id number]:10/04/2024 Progress Note Patient:?Ramón BUNN Provider:?Caroline Hodges DPM :1965???Age:59 Y???Sex:Male John e:10/04/2024 Address:[address] [place] [address], [address] Pcp:Wallace Esparza Subjective: * Chief Complaints: * ???Wart(s) Foot Pain * HPI: ???Skin problems:?Pt States PCP Visit: ?DATE?09/23/2024 ???Foot Pain:?Nature:?aching tenderness sharp.?Location:?Bottom Outside Forefoot LEFT.?Duration:?several years.?Course:?improved.?Aggravated:?any pressure, standing, walking.?Treatments:?rest change in shoes innersoles, custom orthotics.? * ROS:?General/Constitutional:?Nausea?denies.?Vomiting?denies.?Hunger Thirst?denies.?Loss appetite?denies.?Chills?denies.?Fatigue?denies.?Fever?denies.?Night Sweats?denies.?Unexplained weight loss?denies.?Unexplained weight gain?denies.?HEENTM:?Dentures?denies.?Dizziness?denies.?Glasses/contacts?denies.?Retinopathy?de nies.?Blurred/double vision?denies.?TMJ?denies.?Discharge/drainage?denies.?Implants?denies.?Sore throat?denies.?Dental implants?denies.?Hard of hearing ?denies.?Difficulty chewing/swallowing/speaking?denies.?Nose bleeds?denies.?Sore mouth?denies.?Respiratory:?On Oxygen?denies.?Pneumonia/pleurisy?denies.?Bronchitis?denies.?Emphysema?denies.?C oughing?denies.?Cough blood?denies.?Shortness of breath?denies.?Wheezing?denies.?Cardiovascular:?Pacemaker?denies.?MVP?denies.?WPW?denies.?CHF?denies.?Heart attack?denies.?Septal defect?denies.?Rapid beat?denies.?Chest pain ?denies.?Atrial Fib.?denies.?Murmur/Palpitations?denies.?Gastrointestinal:?Hemorrhoids?denies.?Stomach/Abdominal pain?denies.?Dark blood stool?denies.?Irritable bowel ?denies.?Constipation?denies.?Diarrhea?denies.?Hematology:?Swelling?denies.?Clots?denies.?Varicose Veins?denies.?Bruising?denies.?Bleeding problem?denies.?Genitourinary:?Blood urine?denies.?Frequent/Painfu/urination/bladder control?denies.?Kidney stones?denies.?Infection (UTI)?denies.?Nephropathy?denies.?sex trans dis (STD)?denies.?Prostate?denies.?Musculoskeletal:?Hammertoes?denies.?Bunions?denies.?Back Pain?admits.?Muscle Cramps/ Resting?denies.?Muscle cramps / walking?denies.?Generalized aches and pains?denies.?Weakness?denies.?Integ.:?Maharaj?denies.?Scars?denies.?Corns/calluses?admits.?Ingrown nails?denies.?Painful nails?denies.?Open Sores?denies.?Rashes?denies.?Neurologic:?Difficulty sleeping?denies.?Brain disorder?denies.?Numbness?denies.?Balance trouble?denies.?Confusion?denies.?Fainting/blackouts?denies.?Tingling?denies.?Tr emors?denies.? * Medical History:? * Surgical History:?inguinal h ernia repair, right 1988testicular cyst inguinal hernia repair, left 1993 * Hospitalization/Major Diagno stic Procedure:?Denies Past Hospitalization * Family History:?Mother: unkn own.?Father: , cardiovascular, hypertension, gastric cancer, diagnosed with Other malignant neoplasm of unspecified site, Diabetic - NIDDM.? * Social History:?Tobacco Use:?Tobacco Use/Smoking?Are you a:?former smoker ?Additional Findings: Tobacco Non-User?Current non-smoker ?Tobacco use other than smoking?Are you an other tobacco user??No * Medications:?TakingNicotine Polacrilex 2 MG Gum Mouth/Throat Taking Nicotine Polacrilex 2 MG Gum Mouth/Throat Not-Taking/PRNtraMADol HCl 50 MG Tablet 1 tablet as needed Orally Once a day Gabapentin 300 MG Capsule 1 capsule Orally Once a day Medication List reviewed and reconciled with the patientNot-Taking/PRN traMADol HCl 50 MG Tablet 1 tablet as needed Orally Once a day Not-Taking/PRN Gabapentin 300 MG Capsule 1 capsule Orally Once a day Medication List reviewed and reconciled with the patient * Allergies:?BupropionWellbutr in: seizuresLatex: hivesyes[Allergies Verified] Objective: * Vitals:?Ht: 6ft1in, Wt:250, BMI:32.98, Shoe size: 13, BP:142/90mm Hg, Ht-cm: 185.42 cm, Wt-k.4 kg. * Examination: ???General Examination: ?GENERAL APPEARANCE:?Reveals a pleasant, alert, well nourished, well developed, well hydrated individual, who demonstrates proper attention to hygene/body habitus, and is in no acute distress.?ORIENTED:?person, place, and time.?Neurological: ?SENSORY:?Neurological exam reveals intact sensorium, pain sensation normal, vibration sensation intact, pinprick sensation is normal in the lower extremities, Pt denies, anesthesia, burning, paresthesia, tingling, B/L.?TINEL'S COMPRESSION:?Negative, Medial dorsal cutaneus nerve distribution, Intermediate dorsal cutaneus nerve distribution.?DEEP TENDON REFLEXES:?Achilles, 2/4, B/L.?Vascular: ?DP PULSES(B):?3/4, B/L.?PT PULSES(B):?3/4, B/L.?CAPILLARY FILL TIME:?immediate, all digits, B/L.?TROPHIC CONDITION-TEXTURE/ELASTICITY/TURGOR/HAIR GROWTH(B):?normal, B/L.?TEMPERTURE GRADIENT(C):?warm to cool, proximal to distal, B/L.?PIGMENTATION:?normal, B/L.?EDEMA(C):?absent, B/L.?Dermatologic: ?SKIN FINDINGS:? Skin exam reveals Keratotic lesion(s) located at SUB MTH (s) 5 B/L .?VERRUCA:?Reveals a Single , multi-loculated , mosaically patterned, round, raised, flat-topped, petechial bleeding papulae(s), with cauliflower appearance and interrruption of skin lines, pain to lateral compression, and size estimated at 3mm diameter plantar Forefoot LEFT.?Orthopedic: ?MUSCLE STRENGTH:?5/5 all groups in a symmetrical fashion , B/L.?TAILOR'S BUNION:? LESS painful, 5th MTH/MPJ LEFT.?Neuroma Pain: ?PALPATION:?No interspace pain noted on palpation.? Assessment: * Assessment: 1.?Tailor's bunion of left f oot - M21.622 (Primary)???2.?Pain in left foot - M79.672???3.?Plantar wart - B07.0???4.?Metatarsalgia of left foot - M77.42???5.?Metatarsalgia of right foot - M77.41??? Plan: * Treatment: * Procedures:?Wart Treatment:?Procedure?Verrucae(s) were debrided to pin-point bleeding margins with sterile surgical blade, silver nitrate chemocautery applied, recomm. immune-boosting meds such as zinc, recomm. follow up with topical chemosurgical agents, Pt defers any other forms of tx (85139).? * Procedure Codes:?50927 Wart Destruction, 1-14, Modifiers: XS * Preventive Medicine:? ??Counseling:?Discussion:?-13: Office or other outpatient visit for the evaluation and management of an established patient, which required a medically appropriate history and/or examination and LOW level of DECISION MAKING for: 1 STABLE ACUTE UNCOMPLICATED PROBLEM, 2 OR MORE MINOR PROBLEMS, OR 1 STABLE CHRONIC PROBLEM, THAT POSE(S) A LOW RISK FOR MORBIDITY/MORTALITY. The visit on the day of the encounter encompassed interpreting the data and educating the patient as to the nature of their condition, treatment options available according to their individual PMH, meds, allergies, and overall health/living conditions, as well as any potential risks or complications that may occur from a failure to adhere to, and participate in, the recommended course of therapy. The discussion included a complete verbal, and/or written explanation of the examination results, any x-rays taken, the proposed diagnosis, and outline of the treatment plan. A schedule for future care needs was also explained. The patient verbalized an understanding of the instructions at this time and agreed to be an active participant in their treatment. If the patient should think of any questions or concerns after the visit, I have encouraged the patient to call the office.?Metatarsalgea:?I explained to the patient the possible etiologies of their Metatarsalgea Foot pain, including foot type/shoegear/activity level/exercise routine and the risks/benefits of all the different treatment options for pain including: No treatment at all, Rest, Ice, NSAIDs(only if well tolerated after meals), New/supportive Shoegear, Strappings and Tapings, Foot/Ankle AFO Bracing, Stretching exercises, Deep Tissue Massage, Arch support/shoe inserts, Custom orthoses, Topical analgesics including Aspercream/Voltaren gel, Physical Therapy, Cortisone injection therapy, EPAT/ESWT. Advantages and disadvantages of each option were discussed and the patients' questions re: shoegear, custom vs prefabricated inserts, activity level, PO vs Topical medications (and their respective potential complications/drug interactions/side effects), and consistency in home treatment regimens for optimal success were answered to their verbally confirmed satisfaction.? * Follow Up:?3 Months * Images: * Sign off status: Completed true * Provider:?Caroline Hodges DPM Date:? Generated for [place] ryder/Carolyng/eTransmitting on:?01/06/2025 10:54 AM EST History and Physical Notes * HPI (History of Present Illness) Category Sub-Category Detail Notes Category Not es Skin problems Pt States PCP Visit: DATE: 09/23/2024 Foot Pain Nature: aching tenderness sharp Location: Bottom Outside Foref oot LEFT Duration: several years Course: improved Aggravated: any pressure, standi ng, walking Treatments: rest change in shoes innersoles, custom orthotics Examination Category Sub-Category Detail Notes Category Not es Neuroma Pain PALPATION: No interspace pain noted on palpation Neurological SENSORY: Neurological exa m reveals intact sensorium, pain sensation normal, vibration sensation intact, pinprick sensation is normal in the lower extremities, Pt denies, anesthesia, burning, paresthesia, tingling, B/L TINEL'S COMPRESSION: Negative, Medial do rsal cutaneus nerve distribution, Intermediate dorsal cutaneus nerve distribution DEEP TENDON REFLEXES: Achilles, 2/4, B/L Dermatologic SKIN FINDINGS: Skin exam reveal s Keratotic lesion(s) located at SUB MTH (s) 5 B/L VERRUCA: Reveals a Single , m ulti-loculated , mosaically patterned, round, raised, flat-topped, petechial bleeding papulae(s), with cauliflower appearance and interrruption of skin lines, pain to lateral compression, and size estimated at 3mm diameter plantar Forefoot LEFT Orthopedic TAILOR'S BUNION: LESS painful, 5th MTH/MP J LEFT MUSCLE STRENGTH: 5/5 all groups in a symmetrical fashion , B/L General Examination GENERAL APPEARANCE: Reveals a pleasant, alert, well nourished, well developed, well hydrated individual, who demonstrates proper attention to hygene/body habitus, and is in no acute distress ORIENTED: person, place, and t wendie Vascular DP PULSES (B): 3/4, B/L PT PULSES (B): 3/4, B/L CAPILLARY FILL TIME: immediate, all digi ts, B/L TEMPERTURE GRADIENT (C): warm to cool, p roximal to distal, B/L TROPHIC CONDITION-TEXTURE/ELASTICITY/TURGOR/HAIR GROWTH (B): normal, B/L EDEMA (C): absent, B/L PIGMENTATION: normal, B/L
--- OUTSIDE RECORDS SUMMARY | 2025-01-06 10:55 | XMS_ITS ---
Author Organization [facility] Address [address] [place] [address] Care Team Providers Care Grievance Manager Name Role Phone Wallace Esparza Primary Care Provider Caroline Zamorano Unavailable [phone] Allergies Allergen (clinical drug ingredient) Drug/Non Drug [...] as needed Orally Once a day Not-Taking Nicotine Polacrilex 2 MG Mouth/Throat for 8 Days Active Gabapentin 300 MG 1 capsule Orally Onc e a day for 30 day(s) Not-Taking Social History Tobacco Use: Social History Observation Description Date Details (start date - stop date) Former Smoker NA - NA Tobacco Use/Smoking Question Answer Notes Are you a: former smoker Additional Findings: Tobacco Non-User Current no n-smoker Tobacco use other than smoking: Question Answer Notes Are you an other tobacco user? No Vital Signs Height 6ft1in in 07/05/2024 Weight 250 lbs 07/05/2024 BMI 32.98 kg/m2 07/05/2024 Blood pressure systolic 160 mm Hg 07/05/20 24 Blood pressure diastolic 100 mm Hg 024 Encounters Encounter Location Date Provider Diagnosis [facility] [address] [place] [address] 07/05/2024 Caroline Hodges Tailor's bunion of left foot M21.622 ; Pain in left foot M79.672 ; Plantar wart B07.0 ; Metatarsalgia of left foot M77.42 and Metatarsalgia of right foot M77.41 Assessments Encounter Date Diagnosis (ICD Code) Assessment Notes Treatment Notes Treatment Clinical Notes Section Notes 07/05/2024 Tailor's bunion of left foot (ICD-10 - M21.622) 07/05/2024 Pain in left foot (ICD-10 - M79.672) 07/05/2024 Plantar wart (ICD-10 - B07.0) 07/05/2024 Metatarsalgia of left foot (ICD-10 - M77.42) 07/05/2024 Metatarsalgia of right foot (ICD-10 - M77.41) Plan Of Treatment Next Appt Details Follow Up: 3 Months, Reason: Provider Name:Caroline ying, 01/10/2025 01:00:00 PM, [address] [place] [address], [phone], Procedure Notes * Category Sub-Category Detail Notes Wart Treatment Procedure Verrucae(s) were debrided to pin-point bleeding margins with sterile surgical blade, silver nitrate chemocautery applied, recomm. immune-boosting meds such as zinc, recomm. follow up with topical chemosurgical agents, Pt defers any other forms of tx (48627) Progress Notes * Ramón BUNNDOB:1965 (59 yo M)Acc No.[id number]:07/05/2024 Progress Note Patient:?Ramón Bunn Provider:?Caroline Hodges DPM :1965???Age:59 Y???Sex:Male John e:07/05/2024 Address:[address] [place] [address], [address] Pcp:Wallace Esparza Subjective: * Chief Complaints: * ???Wart(s) Foot Pain * HPI: ???Skin problems:?Pt States PCP Visit: ?DATE?12/30/2023 ???Foot Pain:?Nature:?aching tenderness sharp.?Location:?Bottom Outside Forefoot LEFT.?Duration:?several years.?Course:?progressive.?Aggravated:?any pressure, standing, walking.?Treatments:?rest change in shoes innersoles, custom orthotics-only wears about 2 x per month .? * ROS:?General/Constitutional:?Nausea?denies, denies.?Vomiting?denies, denies.?Hunger Thirst?denies, denies.?Loss appetite?denies, denies.?Chills?denies, denies.?Fatigue?denies, denies.?Fever?denies, denies.?Night Sweats denies, denies.?Unexplained weight loss?denies, denies.?Unexplained weight gain?denies, denies.?HEENTM:?Dentures?denies, denies.?Dizziness?denies, denies.?Glasses/contacts?denies, denies.?Retinopathy?denies, denies.?Blurred/double vision?denies, denies.?TMJ?denies, denies.?Discharge/drainage?denies, denies.?Implants?denies, denies.?Sore throat?denies, denies.?Dental implants?denies, denies.?Hard of hearing ?denies, denies.?Difficulty chewing/swallowing/speaking?denies, denies.?Nose bleeds?denies, denies.?Sore mouth?denies, denies.?Respiratory:?On Oxygen?denies, denies.?Pneumonia/pleurisy?denies, denies.?Bronchitis?denies, denies.?Emphysema?denies, denies.?Coughing?denies, denies.?Cough blood?denies, denies.?Shortness of breath?denies, denies.?Wheezing?denies, denies.?Cardiovascular:?Pacemaker?denies, denies.?MVP?denies, denies.?WPW?denies, denies.?CHF?denies, denies.?Heart attack?denies, denies.?Septal defect?denies, denies.?Rapid beat?denies, denies.?Chest pain ?denies, denies.?Atrial Fib.?denies, denies.?Murmur/Palpitations?denies, denies.?Gastrointestinal:?Hemorrhoids?denies, denies.?Stomach/Abdominal pain?denies, denies.?Dark blood stool?denies, denies.?Irritable bowel ?denies, denies.?Constipation?denies, denies.?Diarrhea?denies, denies.?Hematology:?Swelling?denies, denies.?Clots?denies, denies.?Varicose Veins?denies, denies.?Bruising?denies, denies.?Bleeding problem?denies, denies.?Genitourinary:?Blood urine?denies, denies.?Frequent/Painfu/urination/bladder control?denies, denies.?Kidney stones?denies, denies.?Infection (UTI)?denies, denies.?Nephropathy?denies, denies.?sex trans dis (STD)?denies, denies.?Prostate?denies, denies.?Musculoskeletal:?Hammertoes?denies, denies.?Bunions?denies, denies.?Back Pain?admits, admits.?Muscle Cramps/ Resting?denies, denies.?Muscle cramps / walking?denies, denies.?Generalized aches and pains?denies, denies.?Weakness?denies, denies.?Integ.:?Maharaj?denies, denies.?Scars?denies, denies.?Corns/calluses?admits, admits.?Ingrown nails?denies, denies.?Painful nails?denies, denies.?Open Sores?denies, denies.?Rashes?denies, denies.?Neurologic:?Difficulty sleeping?denies, denies.?Brain disorder?denies, denies.?Numbness?denies, denies.?Balance trouble?denies, denies.?Confusion?denies, denies.?Fainting/blackouts?denies, denies.?Tingling?denies, denies.?Tremors?denies, denies.? * Medical History:? * Surgical History:?inguinal h ernia repair, right 1988testicular cyst inguinal hernia repair, left 1993 * Hospitalization/Major Diagno stic Procedure:?Denies Past Hospitalization * Family History:?Mother: unkn own.?Father: , cardiovascular, hypertension, gastric cancer, diagnosed with Diabetic - NIDDM, Other malignant neoplasm of unspecified site.? * Social History:?Tobacco Use:?Tobacco Use/Smoking?Are you a:?former smoker ?Additional Findings: Tobacco Non-User?Current non-smoker ?Tobacco use other than smoking?Are you an other tobacco user??No ???Miscellaneous:?Caffeine: yes, frequency:, 2-3 cups per day. ?Children: yes. ?Exercise: yes, Walking. ?Marital status: . ?Occupation: Disability. * Medications:?TakingNicotine Polacrilex 2 MG Gum Mouth/Throat Taking Nicotine Polacrilex 2 MG Gum Mouth/Throat Not-Taking/PRNtraMADol HCl 50 MG Tablet 1 tablet as needed Orally Once a dayGabapentin 300 MG Capsule 1 capsule Orally Once a dayMedication List reviewed and reconciled with the patientNot-Taking/PRN traMADol HCl 50 MG Tablet 1 tablet as needed Orally Once a dayNot-Taking/PRN Gabapentin 300 MG Capsule 1 capsule Orally Once a dayMedication List reviewed and reconciled with the patient * Allergies:?BupropionWellbutr in: seizuresLatex: hivesyes[Allergies Verified] Objective: * Vitals:?Ht: 6ft1in, Wt:250, BMI:32.98, Shoe size: 13, BP:160/100 mm Hg, Ht-cm: 185.42 cm, Wt-k.4 kg. * [...] nerve distribution.?DEEP TENDON REFLEXES:?Achilles, 2/4, B/L.?Vascular: ?DP PULSES:?3/4, B/L.?PT PULSES:?3/4, B/L.?CAPILLARY FILL TIME:?immediate, all digits, B/L.?SKIN TEMPERTURE GRADIENT OF THE LOWER EXTERMITIES:?warm to cool, proximal to distal, B/L.?HAIR GROWTH/TEXTURE/ELASTICITY/TURGOR:?normal, B/L.?PIGMENTATION:?normal, B/L.?EDEMA:?absent, B/L.?Dermatologic: ?SKIN FINDINGS:? Skin exam reveals Keratotic lesion(s) located at SUB MTH (s) 5 B/L .?VERRUCA:?Reveals a Single , multi-loculated , mosaically patterned, round, raised, flat-topped, petechial bleeding papulae(s), with cauliflower appearance and interrruption of skin lines, pain to lateral compression, and size estimated at 5mm diameter plantar Forefoot LEFT.?Orthopedic: ?MUSCLE STRENGTH:?5/5 all groups in a symmetrical fashion , B/L.?TAILOR'S BUNION:? Prominent, painful, inflammed 5th MTH/MPJ LEFT.?Neuroma Pain: ?PALPATION:?No interspace pain noted on palpation.? Assessment: * Assessment: 1.?Pain in left foot - M79.6 72?2.?Tailor's bunion of left foot - M21.622 (Primary)?3.?Plantar wart - B07.0?4.?Metatarsalgia of left foot - M77.42?5.?Metatarsalgia of right foot - M77.41? Plan: * Treatment: * Procedures:?Wart Treatment:?Procedure?Verrucae(s) were debrided to pin-point bleeding margins with sterile surgical blade, silver nitrate chemocautery applied, recomm. immune-boosting meds such as zinc, recomm. follow up with topical chemosurgical agents, Pt defers any other forms of tx (59725).? * Procedure Codes:?17946 Wart Destruction, 1-14, Modifiers: XS * Preventive [...] success were answered to their verbally confirmed satisfaction.?Orthotics:?I explained to the patient the benefits of OT use. I explained that orthoses are medically necessary to decrease the foot pain through proper mechanical control, support of their foot.? * Follow Up:?3 Months * Images: * Sign off status: Completed true * Provider:?Caroline Hodges DPM Date:? Generated for [place] ryder/Carlos/eTniralismitting on:?01/06/2025 10:54 AM EST History and Physical Notes * HPI (History of Present Illness) Category Sub-Category Detail Notes Category Not es Skin problems Pt States PCP Visit: DATE: 12/30/2023 Foot Pain Nature: aching tenderness sharp Location: Bottom Outside Foref oot LEFT Duration: several years Course: progressive Aggravated: any pressure, standi ng, walking Treatments: rest change in shoes innersoles, custom orthotics-only wears about 2 x per month Examination Category Sub-Category Detail Notes Category Not [...] to lateral compression, and size estimated at 5mm diameter plantar Forefoot LEFT Orthopedic TAILOR'S BUNION: Prominent, painful, infl ammed 5th MTH/MPJ LEFT MUSCLE STRENGTH: 5/5 all groups in [...]
[2025-01-06 11:39] LABS: Basophils Percent Auto 0.3 % (0-2); Eosinophils Absolute Auto 0.1 X10*3/uL (0.0-0.4); Hematocrit 46.1 % (42.0-52.0); Imm Gran Abs Auto 0.04 X10*3/uL (0.00-0.03); Imm Gran Pct Auto 0.4 % (0.0-0.4); Lymphocytes Absolute Auto 2.4 X10*3/uL (1.2-4.9); Lymphocytes Percent Auto 24.1 % (20-40); Mean Corpuscular HGB Conc 32.5 g/dl (31.0-36.0); Mean Corpuscular Hemoglobin 29.8 pg (27.0-33.0); Mean Corpuscular Volume 91.5 fL (80.0-98.0); Mean Platelet Volume 9.1 fL (9.4-12.4); Monocytes Absolute Auto 0.9 X10*3/uL (0.1-1.2); Monocytes Percent Auto 9.1 % (2-11); Neutrophils Absolute Auto 6.4 x10*3/uL (2.0-8.3); Neutrophils Percent Auto 65.1 % (45-73); Platelet Count 361 X10*3/uL (160-400); Red Blood Count 5.04 X10*6/uL (4.60-5.80); Red Cell Distribution Width 15.3 % (11.0-16.0); White Blood Count 9.8 X10*3/uL (4.8-10.8)
[2025-01-06 11:44] LABS: Estimated Average Glucose 126 mg/dL; Total Hemoglobin (HGBA1C) 3953.8387 umol/L
[2025-01-06 12:31] LABS: Albumin Level 4.4 g/dL (3.5-5.0); Alkaline Phosphatase 73 U/L (39-117); Anion Gap 13 (12-20); Aspartate Amino Transferase 26 U/L (5-37); Bilirubin Total 0.4 mg/dL (0.0-1.0); Blood Urea Nitrogen 13 mg/dL (9-16); Calcium 9.9 mg/dL (8.4-10.2); Carbon Dioxide 29 mmol/L (22-29); Chloride 102 mmol/L (96-108); Cholesterol 215 mg/dL (<200); Estimated Glomerular Filt Rate > 60; Glucose Random 103 mg/dL (60-115); HDL Cholesterol 39 mg/dL (>40); LDL Cholesterol Calculated 149 mg/dL (<100); Potassium 4.4 mmol/L (3.3-5.1); Sodium 140 mmol/L (135-145); Total Protein 8.4 g/dL (6.5-8.0); Triglycerides 139 mg/dL (<150)
[2025-01-06 12:34] LABS: Free T4 (Free Thyroxine) 1.17 ng/dL (0.71-1.85); Thyroid Stimulating Hormone 1.13 uIU/mL (0.32-4.0)
[2025-01-06 12:48] LABS: Folate 9.5 ng/mL (> or = 4.0); Prostate Specific Antigen Scr 0.83 ng/mL (<0.05-4.0); Vitamin B12 380 pg/mL (200-900)
[2025-01-06 12:52] LABS: Alanine Aminotransferase 26 U/L (0-40)
== END 2025-01-06 10:11 | disposition home or self-care (01) ==
LOC: HO.LAB 10:10
PROVIDERS: PCP Internal Medicine; Visit Provider Internal Medicine
DX: R73.9 Hyperglycemia, unspecified (principal); E78.00 Pure hypercholesterolemia, unspecified; Z12.5 Encounter for screening for malignant neoplasm of prostate
CPT/HCPCS: 36415; 80053; 80061; 82607; 82746; 83036; 84153; 84439; 84443; 85025

== ENCOUNTER 2025-01-12 14:40 | Outpatient (AMB) | payer OTHER, SELFPAY ==
--- NOTE | 2025-01-12 14:50 | MHC.PC.OV ---
Vital Signs 01/12/25 14:52 01/12/25 15:00 Height 6 ft 1 in Weight 263 lb BMI 34.7 BP 140/82 H 130/90 H Blood Pressure Location Lt brachial Lt brachial Position Sitting Sitting Pulse 103 H Pulse Source Pulse Oximeter Temp 97.7 F Temp Source Temporal Artery Scan Pulse Oximetry (%) 94 Oxygen Delivery Method Room Air Intake Visit Reasons: IGT, HTN Intake Note: Patient is here to follow up on IGT, HTN. Transporter Driver Required: No Lining Repairer: Not Required per policy Accompanied by: Self / Same As Patient Allergies bupropion [From WELLBUTRIN] Allergy (Unknown, Verified 01/12/25 14:51) SYNCOPE, SEIZURE Medication List - Last Reconciled 01/12/25 by Wallace Esparza MD hydrochlorothiazide 25 mg PO DAILY nicotine (polacrilex) 4 mg buccal Q2H Tobacco use date assessed: 01/12/25 Dental Screening Dental Screen Date: 01/12/25 Did you have a dental visit in the last 12 months?: No Did you have a dental problem in the last 6 months where you did not have access to dental care?: No Was dental information given to patient?: No HPI IGT, HTN HPI Details 59-year-old obese male with a history of hypercholesterolemia BPH hypertension impaired glucose tolerance coming in for physical exam. PFSH Medical History Blood pressure elevated without history of HTN Elevated blood sugar Tobacco dependence Bladder outlet obstruction BPH (benign prostatic hyperplasia) Low back pain Smoker Surgical History S/P hernia surgery History of testicular surgery Family History Mother No problems noted. Father CVD (cardiovascular disease) FH: HTN (hypertension) Diabetes Gastric cancer Daughter Healthy female adolescent Brother Gastric cancer CVD (cardiovascular disease) Maternal Grandfather Lung cancer Social History Housing: Apartment Alcohol intake: never Patient Tobacco Use Status: Former Tobacco user Tobacco use type: Cigarette Cigarettes Per Day: 15 Years Smoked: 25- stopped 02/2023,smoking marijuana e-Cigarette/Vaping Use: Never Used Second Hand Smoke Exposure: Yes service: No Current occupational status: employed and unemployed Cognitive needs: No Hearing needs: No Vision needs: No Questionnaire PHQ-9 Over the last 2 weeks, how often have you been bothered by any of the following problems? 1. Little interest or pleasure in doing things: not at all 2. Feeling down, depressed, or hopeless: not at all 3. Trouble falling or staying asleep, or sleeping too much: not at all 4. Feeling tired or having little energy: not at all 5. Poor appetite or overeating: not at all 6. Feeling bad about yourself - or that you are a failure or have let yourself or your family down: not at all 7. Trouble concentrating on things, such as reading the newspaper or watching television: not at all 8. Moving or speaking so slowly that other people could have noticed. Or the opposite - being so fidgety or restless that you have been moving around a lot more than usual: not at all 9. Thoughts that you would be better off or of hurting yourself in some way: not at all Total score: 0 Depression Screening Interpretation: Negative Depression Screening Done: Yes Source: Developed by Drs. Prieto Beltran, Avril Trejo, Quinton Kunz and colleagues, with an educational lissette from [employer]. Thrive Questionnaire Date Thrive assessed: 01/12/25 I am a: Patient What is your living situation today?: I have a steady place to live Within the past 12 months, did the food you bought not last and you didn't have the money to get more?: Never true Within the past 12 months, did you worry whether your food would run out before you got money to buy more?: Never true Do you have trouble paying for medicines?: No Do you have trouble getting transportation to medical appointments?: No Do you have trouble paying your heating and electricity bill?: No Do you have trouble taking care of your child, family member or friend?: No Do you have trouble with day-to-day activities such as bathing, preparing meals, shopping, managing finances, etc.?: No Are you currently unemployed and looking for a job?: No Are you interested in more education?: No Please select the resources that you would like help with: None Currently or been in a relationship where the following occur: No concerns reported THRIVE Score: 0 AUDIT C Alcohol Use Questionnaire (AUDIT-C) 1. How often do you have a drink containing alcohol?: Never Total Score: 0 ARGENT[place]-7 AMB Questionnaire ARGENTINA-7 Date ARGENTINA - 7 assessed: 01/12/25 Feeling nervous, anxious, or on edge: 0 = Not at all Not being able to stop or control worryin = Not at all Worrying too much about different things: 0 = Not at all Trouble relaxin = Not at all Being so restless that it is hard to sit still: 0 = Not at all Becoming easily annoyed or irritable: 0 = Not at all Feeling afraid as if something awful might happen: 0 = Not at all Total [place]-7 score (0-4 normal; 5-9 mild; 10-14 moderate; 15-21 severe): 0 Source: Developed by Drs. Prieto Beltran, Avril Trejo, Quinton Kunz and colleagues, with an educational lissette from [employer]. Physical exam (Primary Care) Vital Signs: Last Vital Signs Temp 97.7 F 01/12/25 14:52 Pulse 103 H 01/12/25 14:52 BP 130/90 H 01/12/25 15:00 Pulse Ox 94 01/12/25 14:52 Oxygen Delivery Method Room Air 01/12/25 14:52 BMI result Body Mass Index 34.7 Tobacco/Smoking Status: Tobacco use Status Tobacco use date assessed 01/12/25 01/12/25 14:52 Patient Tobacco Use Status Former Tobacco user 01/12/25 14:52 Tobacco use type Cigarette 01/12/25 14:52 e-Cigarette/Vaping Use Never Used 01/12/25 14:52 PHQ-9: PHQ-9 Score PHQ-9: Total score 0 01/12/25 14:59 Depression Screening Interpretation: Negative Thrive Assessment: Date of Thrive Assessment Date Thrive assessed 01/12/25 01/12/25 14:52 Currently or been in a relationship where the following occur: No concerns reported Const General: alert; No acute distress Eyes Conjunctivae: conjunctivae normal Resp Auscultation: clear to auscultation bilaterally Cardio Rate: regular rate Rhythm: regular rhythm GI Inspection: Yes normal to inspection Extrem General: Yes normal to inspection and No edema Coding Level of Care Code Est Pt Level 4 (30074) Complex EM visit Add On G2211 Diagnoses Primary hypertension I10 Hypertension type: primary hypertension Impaired fasting blood sugar R73.01 Hypercholesterolemia E78.00 Obesity (BMI 30-39.9) E66.9 Assessment & Plan Assessment & Plan (1) Hypertension: Code(s): I10 - Essential (primary) hypertension Category: Medical Qualifiers: Hypertension type: primary hypertension Qualified Code(s): I10 - Essential (primary) hypertension Plan: Patient has been placed on hydrochlorothiazide . Continue with blood pressure medication. Decrease salt intake and exercise. With blood pressure elevated advised to increase dose of hydrochlorothiazide. (2) Impaired fasting blood sugar: Code(s): R73.01 - Impaired fasting glucose Category: Medical Plan: Decrease the amount of carbohydrate intake, pasta, bread, rice and potatoes are all sugar and that is aside from all the sweet stuff, remember that fruits are good but they are Sweet also. Discussed about the hemoglobin A1c that is 6 normal is 5.7 will continue to monitor (3) Hypercholesterolemia: Code(s): E78.00 - Pure hypercholesterolemia, unspecified Category: Social Hx Plan: Avoid fried foods, chicken skin, eggs, butter margarine, pastries and meat. Be it pork or beef they have a lot of cholesterol LDL goal of less than 130 and triglyceride of less than 150 advised to repeat blood work (4) Obesity (BMI 30-39.9): Code(s): E66.9 - Obesity, unspecified Category: Medical Plan: Diet and exercise Orders: Orders Hemoglobin A1c 3 Months R73.01 - Impaired fasting glucose Lipid Panel 3 Months E78.00 - Pure hypercholesterolemia, unspecified, R73.01 - Impaired fasting glucose Comprehensive Met. Panel 3 Months R73.01 - Impaired fasting glucose Medications: Changed From hydrochlorothiazide 12.5 mg PO DAILY 30 tabs 3RF I10 - Essential (primary) hypertension To hydrochlorothiazide 25 mg PO DAILY 30 tabs 3RF I10 - Essential (primary) hypertension Refilled nicotine (polacrilex) 4 mg buccal Q2H 100 ea 0RF F17.200 - Nicotine dependence, unspecified, uncomplicated
[2025-01-12 14:52] VITALS: BP 140/82; PULSE 103; TEMP 36.5; O2SAT 94; BMI 34.7
[2025-01-12 15:00] VITALS: BP 130/90
--- OUTSIDE RECORDS SUMMARY | 2025-01-12 18:01 | XMS_ITS ---
Author Organization [facility] Address [address] [place] [address] Care Team Providers Care Office Clerk Routine Name Role Phone Wallace Esparza Primary Care Provider Caroline Zamorano [phone] Cuevas Encounters Encounter Location Date Provider Diagnosis [address] [address] 01/03/2025 Caroline Hodges Plan Of Treatment Next Appt Details Provider Name:Caroline ying, 04/11/2025 02:45:00 PM, [address] [place], [address], Progress Notes * Ramón BUNNDOB:1965 (59 yo M)Acc No.[id number]:01/03/2025 Progress Note Patient:?Ramón BUNN Provider:?Caroline Hodges DPM :1965???Age:59 Y???Sex:Male John e:01/03/2025 Address:[address] [place] [address], [address], [place], [place] Pcp:Wallace Esparza Subjective: * Chief Complaints: * [...] Hodges DPM Date:? Generated for [place] ryder/Carlos/Leighton on:?01/12/2025 06:01 PM EST
--- OUTSIDE RECORDS SUMMARY | 2025-01-12 18:01 | XMS_ITS ---
Author Organization [facility] Address [address] [place] [address] Care Team Providers Care Research And Development Researcher Name Role Phone Wallace Esparza Primary Care Provider Caroline Zamorano [phone] REASON FOR VISIT Custom OT Encounters Encounter Location Date Provider Diagnosis [facility] [address] [place] [address] 01/10/2025 Caroline Hodges Plan Of Treatment Next Appt Details Provider Name:Caroline ying, 04/11/2025 02:45:00 PM, [address] [place], [address], Progress Notes * Ramón BUNNDOB:1965 (59 yo M)Acc No.[id number]:01/10/2025 Patient:?Ramón BUNN :1965???Age:59 Y???Sex:Male Address:[address] [place] [address], [address], [place], [address] * * Date:?
--- OUTSIDE RECORDS SUMMARY | 2025-01-12 18:01 | XMS_ITS ---
Author Organization [facility] Address [address] [place] [address] Care Team Providers Care Wholesale Agronomist Name Role Phone Wallace Esparza Primary Care Provider Caroline Zamorano Unavailable [phone] Allergies Allergen (clinical drug ingredient) Drug/Non Drug Allergy documented on EMR Reaction Allergy Type Onset Date Status Wellbutrin seizures Drug Allergy Active bupropion Bupropion Unknown Drug Allergy Active Latex Latex hives Allergy Active REASON FOR VISIT Wart(s), Foot Pain Medications Medication SIG (Take, Route, Frequency, Duration) Notes Start Date End Date Status Nicotine Polacrilex 2 MG Mouth/Throat fo r 8 Days Active hydroCHLOROthiazide 12.5 MG TAKE 1 TABLE T BY MOUTH DAILY Oral for 30 Days Active Gabapentin 300 MG 1 capsule Orally Once a day for 30 day(s) Not-Taking traMADol HCl 50 MG 1 tablet as needed Orally Once a day Not-Taking Social History Tobacco Use: Social History Observation Description Date Details (start date - stop date) Never Smoker NA - NA Tobacco use other than smoking: Question Answer Notes Are you an other tobacco user? No Tobacco Control (Standard) Question Answer Notes Tobacco use: Nonsmoker Vital Signs Height 6ft1in in 01/10/2025 Weight 255 lbs 01/10/2025 BMI 33.64 kg/m2 01/10/2025 Blood pressure systolic 145 mm Hg 01/10/20 Blood pressure diastolic 90 mm Hg 025 Encounters Encounter Location Date Provider Diagnosis [facility] [address] [place] [address] 01/10/2025 Caroline Hodges Tailor's bunion of left foot M21.622 ; Metatarsalgia of left foot M77.42 ; Pain in left foot M79.672 ; Plantar wart B07.0 and Metatarsalgia of right foot M77.41 Assessments Encounter Date Diagnosis (ICD Code) Assessment Notes Treatment Notes Treatment Clinical Notes Section Notes 01/10/2025 Tailor's bunion of left foot (ICD-10 - M21.622) 01/10/2025 Metatarsalgia of left foot (ICD-10 - M77.42) 01/10/2025 Pain in left foot (ICD-10 - M79.672) 01/10/2025 Plantar wart (ICD-10 - B07.0) 01/10/2025 Metatarsalgia of right foot (ICD-10 - M77.41) Plan Of Treatment Next Appt Details Follow Up: 3 Months, Reason: Provider Name:Caroline ying, 04/11/2025 02:45:00 PM, [address] [place] [address], [phone], Procedure Notes * Category Sub-Category Detail Notes Wart Treatment Procedure Verrucae(s) were debrided to pin-point bleeding margins with sterile surgical blade, silver nitrate chemocautery applied, recomm. immune-boosting meds such as zinc, recomm. follow up with topical chemosurgical agents, Pt defers any other forms of tx (02955) Progress Notes * Ramón BUNNDOB:1965 (59 yo M)Acc No.[id number]:01/10/2025 Progress Note Patient:?Janes BUNNmond Provider:?Caroline Hodges DPM :1965???Age:59 Y???Sex:Male John e:01/10/2025 Address:[address] [place] [address], [facility] [address], [place] Pcp:Wallace Esparza Subjective: * Chief Complaints: * ???Wart(s) Foot Pain * HPI: ???Skin problems:?Pt States PCP Visit: ?DATE?09/23/2024 ???Foot Pain:?Nature:?aching tenderness sharp.?Location:?Bottom Outside Forefoot LEFT.?Duration:?several years.?Course:?intermittent.?Aggravated:?any pressure, standing, walking.?Treatments:?rest change in shoes innersoles, [...] * Surgical History:?inguinal h ernia repair, right 1989testicular cyst inguinal hernia repair, left 1993 * Hospitalization/Major Diagno stic Procedure:?Denies Past Hospitalization * Family History:?Mother: unkn own.?Father: , cardiovascular, hypertension, gastric cancer, diagnosed with Other malignant neoplasm of unspecified site, Diabetic - NIDDM.? * Social History:?Tobacco Use:?Tobacco use other than smoking?Are you an other tobacco user??No ?Tobacco Control (Standard)?Tobacco use:?Nonsmoker ???Miscellaneous:?Caffeine: yes, frequency:, 2-3 cups per day. ?Children: yes. ?Exercise: yes, Walking. ?Marital status: . ?Occupation: Disability. * Medications:?TakingNicotine Polacrilex 2 MG Gum Mouth/Throat hydroCHLOROthiazide 12.5 MG Tablet TAKE 1 TABLET BY MOUTH DAILY Oral Taking Nicotine Polacrilex 2 MG Gum Mouth/Throat Taking hydroCHLOROthiazide 12.5 MG Tablet TAKE 1 TABLET BY MOUTH DAILY Oral Not-Taking/PRNtraMADol HCl 50 MG Tablet 1 tablet [...] seizuresLatex: hivesyes[Allergies Verified] Objective: * Vitals:?Ht: 6ft1in, Wt:255, BMI:33.64, Shoe size: 13, BP:145/90mm Hg, Ht-cm: 185.42 cm, Wt-k.67 kg. * Examination: ???General Examination: ?GENERAL APPEARANCE:?Reveals [...] nerve distribution.?DEEP TENDON REFLEXES:?Achilles, 2/4, B/L.?Vascular: ?DP PULSES (B):?3/4, B/L.?PT PULSES (B):?3/4, B/L.?CAPILLARY FILL TIME:?immediate, all digits, B/L.?TROPHIC CONDITION-TEXTURE/ELASTICITY/TURGOR/HAIR GROWTH (B):?normal, B/L.?TEMPERTURE GRADIENT (C):?warm to cool, proximal to distal, B/L.?PIGMENTATION:?normal, B/L.?EDEMA (C):?absent, B/L.?Dermatologic: ?SKIN FINDINGS:? Skin exam reveals Keratotic lesion(s) located at SUB MTH (s) 5 B/L .?VERRUCA:?Reveals a Single , multi-loculated , mosaically patterned, round, raised, flat-topped, petechial bleeding papulae(s), with cauliflower appearance and interrruption of skin lines, pain to lateral compression, and size estimated at 3mm diameter plantar Forefoot LEFT.?Orthopedic: ?MUSCLE STRENGTH:?5/5 all groups in a symmetrical fashion , B/L.?TAILOR'S BUNION:?, Prominent, painful, inflamed 5th MTH/MPJ 5 , LEFT.?MPJ PATHOLOGY:?Pain, swelling, and inflammation to plantar MPJ(s), Plantarflexed MT/MPJ, 5th, LEFT.?FOOTWEAR:?OT were inspected and noted to be in good condition, but not giving proper support at the present time.?Neuroma Pain: ?PALPATION:?No interspace pain noted on palpation.? * Physical Examination:?L3000 Custom Fabricated OT:?Custom Orthotic?Custom Fabricated Orthoses.? Assessment: * Assessment: 1.?Metatarsalgia of left lv t - M77.42 (Primary)???2.?Tailor's bunion of left foot - M21.622???3.?Pain in left foot - M79.672???4.?Plantar wart - B07.0???5.?Metatarsalgia of right foot - M77.41??? Plan: * Treatment: * Procedures:?Wart Treatment:?Procedure?Verrucae(s) were debrided to pin-point bleeding margins with sterile surgical blade, silver nitrate chemocautery applied, recomm. immune-boosting meds such as zinc, recomm. follow up with topical chemosurgical agents, Pt defers any other forms of tx (09644).? * Procedure Codes:?11736 Wart Destruction, 1-14, Modifiers: XS L3000 Prescription Custom Fabricated Foot insert, Units: 2.00 * Preventive Medicine:? ??Counseling:?Discussion:?-14: Office or other outpatient visit for the evaluation and management of an established patient, which required a medically appropriate history and/or examination and MODERATE level of DECISION MAKING for: 1 OR MORE CHRONIC PROBLEM(S) THATS WORSENING, 2 STABLE CHRONIC PROBLEMS, A NEWLY DIAGNOSED PROBLEM WITH UNCERTAIN PROGNOSIS, AN ACUTE COMPLICATED INJURY WITH MULTIPLE TREATMENT OPTIONS, OR AN ACUTE PROBLEM WITH ACCOMPANYING SYSTEMIC SYMPTOMS, THAT POSE(S) A MODERATE RISK OF MORBIDITY. THIS CONDITION MAY ALSO INCLUDE RX DRUG MANAGEMENT, OR A DECISON FOR MINOR SURGERY. The visit on the day of the [...] through proper mechanical control, support of their foot, decrease pain associated with the plantar lesion, decrease pain under the painful metatarsal by supplementing the soft tissue, cushion the forefoot by supplementing the soft tissue, Custom OT: A comprehensive biomechanical exam, gate analysis, was performed for L3000 ea per foot.?Shoe Gear Counseling:?The patient and I reviewed the types of shoes they should be wearing. My recommendation included obtaining a well-fitted shoe with a good supportive, non-foldable nor twistable sole, plenty of toe/room for the forefoot, and proper arch support. Based on todays examination, I recommended the patient look for new shoes, by having their feet professionally measured. We discussed that generally the best time of the day for a shoe fitting is the afternoon. Different shoes types and brands to best match the patients occupation and vocation were discussed. Specific brand selection will be up to the patient, their individual foot condition/deformities, and fit. The patient and I reviewed the standard new shoe break in period by wearing them for a few hours a day while checking for redness or sores as wear time is increased. The patient verbally confirmed to understanding the information discussed.? * Follow Up:?3 Months * Images: * Sign off status: Completed true * Provider:Sylvia Hodges DPM Date:? Generated for Printi ng/Faxing/eTransmitting on:?01/12/2025 06:01 PM EST History and Physical Notes * HPI (History of Present Illness) Category Sub-Category Detail Notes Category Not es Skin problems Pt States PCP Visit: DATE: 09/23/2024 Foot Pain Nature: aching tenderness sharp Location: Bottom Outside Foref oot LEFT Duration: several years Course: intermittent Aggravated: any pressure, standi ng, walking Treatments: rest change in shoes innersoles, custom orthotics Physical Examination Category Sub-Category Detail Notes Section Note s L3000 Custom Fabricated OT Custom Orthotic Custom Fabricated Orthoses Examination Category Sub-Category Detail Notes Category Not [...] at 3mm diameter plantar Forefoot LEFT Orthopedic FOOTWEAR: OT were inspecte d and noted to be in good condition, but not giving proper support at the present time MPJ PATHOLOGY: Pain, swelling, and inflammation to plantar MPJ(s), Plantarflexed MT/MPJ, 5th, LEFT TAILOR'S BUNION: , Prominent, painful , inflamed 5th MTH/MPJ 5 , LEFT MUSCLE STRENGTH: 5/5 all groups in [...]
--- OUTSIDE RECORDS SUMMARY | 2025-01-12 18:01 | XMS_ITS | Patient Health Record ---
Author Organization [facility] Address [address] [place] [address] Care Team Providers Care Cna Gna Name Role Phone Wallace Esparza Primary Care Provider Caroline Zamorano Unavailable [phone] Allergies Allergen (clinical drug ingredient) Drug/Non Drug [...] stop date) Never Smoker NA - NA Alcohol Screen Question Answer Notes Did you have a drink containing alcohol in the p ast year? No Points 0 Interpretation Negative Tobacco use other than smoking: Question Answer Notes Are you an other tobacco user? No Tobacco Control (Standard) Question Answer Notes Tobacco use: Nonsmoker Problems Problem Type SNOMED Code ICD Code Onset Dates Problem Status W/U Status Risk Notes Problem [id number] Plantar wart (B07.0) Active confirmed Vital Signs Blood pressure diastolic 90 mm Hg 01/10/2025 Height 6ft1in in 01/10/2025 Blood pressure systolic 145 mm Hg 01/10/2025 Weight 255 lbs 01/10/2025 BMI 33.64 kg/m2 01/10/2025 Encounters Encounter Location Date Provider Diagnosis [address] [address] 03/29/2024 Caroline Hodges Tailor's bunion of left foot M21.622 ; Pain in left foot M79.672 ; Plantar wart B07.0 ; Metatarsalgia of left foot M77.42 and Metatarsalgia of right foot M77.[address] [address] 07/05/2024 Carolinebetsy Hodges Tailor's bunion of left foot M21.622 ; Pain in left foot M79.672 ; Plantar wart B07.0 ; Metatarsalgia of left foot M77.42 and Metatarsalgia of right foot M77.[address] [address] 10/04/2024 Caroline Hodges Tailor's bunion of left foot M21.622 ; Pain in left foot M79.672 ; Plantar wart B07.0 ; Metatarsalgia of left foot M77.42 and Metatarsalgia of right foot M77.[address] [address] 01/10/2025 Caroline Hodges Tailor's bunion of left foot M21.622 ; Metatarsalgia of left foot M77.42 ; Pain in left foot M79.672 ; Plantar wart B07.0 and Metatarsalgia of right foot M77.[address] [address] 01/10/2025 Caroline Hodges Assessments Encounter Date Diagnosis (ICD Code) Assessment [...] of left foot (ICD-10 - M77.42) 01/10/2025 Tailor's bunion of left foot (ICD-10 - M21.622) 01/10/2025 Pain in left foot (ICD-10 - M79.672) 10/04/2024 Pain in left foot (ICD-10 - M79.672) 07/05/2024 Plantar wart (ICD-10 - B07.0) 03/29/2024 Plantar wart (ICD-10 - B07.0) 03/29/2024 Metatarsalgia of left foot (ICD-10 - M77.42) 07/05/2024 Metatarsalgia of left foot (ICD-10 - M77.42) 10/04/2024 Plantar wart (ICD-10 - B07.0) 01/10/2025 Plantar wart (ICD-10 - B07.0) 01/10/2025 Metatarsalgia of right foot (ICD-10 - M77.41) 10/04/2024 Metatarsalgia of left foot (ICD-10 - M77.42) 07/05/2024 Metatarsalgia of right foot (ICD-10 - M77.41) 03/29/2024 Metatarsalgia of right foot (ICD-10 - M77.41) 10/04/2024 Metatarsalgia of right foot (ICD-10 - M77.41) Plan Of Treatment Pending Test Test Name Order Date X ray : Foot, left 3V 07/01/2022 Next Appt Details Provider Name:Caroline ying, 04/11/2025 02:45:00 PM, [address] [place], [address], Insurance Providers Payer Name Payer Address Payer Phone Subscriber Number Group Number Insured Name Patient Relationship to Insured Coverage Start Date Coverage End Date [facility] [employer] Claims [address] [facility] [place] [address] [id number] Ramón Bunn Self - patient is the insured Medical (General) History Medical History History ICD Code Degenerative Disc disease Back,Hip,and Knee pain Sciatica Warts Chicken pox Surgical History Surgery Date(Month/Year) inguinal hernia repair, right 1988 testicular cyst inguinal hernia repair, left 1993
== END 2025-01-12 15:13 | disposition home or self-care (01) ==
PROVIDERS: PCP Internal Medicine; Visit Provider Internal Medicine
DX: I10 Essential (primary) hypertension (principal); R73.01 Impaired fasting glucose; E66.9 Obesity, unspecified; Z68.34 Body mass index [BMI] 34.0-34.9, adult; E78.00 Pure hypercholesterolemia, unspecified

== ENCOUNTER → 2025-01-12 14:40 | Outpatient (BNVA) | payer OTHER, SELFPAY | PROVIDERS: PCP Internal Medicine; Visit Provider Internal Medicine | DX: I10 Essential (primary) hypertension (principal); R73.01 Impaired fasting glucose; E78.00 Pure hypercholesterolemia, unspecified; E66.9 Obesity, unspecified | CPT/HCPCS: 99212 ==

== ENCOUNTER 2025-02-15 12:48 | Outpatient (AMB) | payer OTHER, SELFPAY ==
--- NOTE | 2025-02-15 12:56 | A.OFFVIS_ITS ---
Vital Signs 02/15/25 13:00 Height 6 ft 1 in Weight 255 lb BMI 33.6 BP 118/72 Blood Pressure Location Lt brachial Position Sitting Pulse 92 Pulse Oximetry (%) 97 Oxygen Delivery Method Room Air Intake Visit Reasons: [place] screening Intake Note: New consult for 1st pre colonoscopy screening. Patient cc: hemorrhoids in the past. 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 He is referred by Wallace Esparza. PMX Obesity Hypertension Impaired fasting glucose BPH with history of bladder outlet obstruction Lumbar degenerative disc disease History of syncope Smoker History of scrotal cyst * SURGICAL HISTORY Hernia surgery Testicular surgery-cyst removal * ALLERGIES bupropion * [employer] LABS: Laboratory Tests 01/06/25 10:33 WBC 9.8 Hgb 15.0 Hct 46.1 Plt Count 361 Estimated GFR > 60 Hemoglobin A1c % 6.0 Total Bilirubin 0.4 AST 26 ALT 26 Alkaline Phosphatase 73 TSH 1.13 TODAY'S VISIT He has serious anxiety/reservations about having colonoscopy. We discuss thoroughly. He also fears the prep process and sterilization issue such as have occurred at other institutions. We aslo watch Cologuard video. His younger brother of CRC. [facility] Medical History Blood pressure elevated without history of HTN Elevated blood sugar Tobacco dependence Bladder outlet obstruction BPH (benign prostatic hyperplasia) Low back pain Smoker Surgical History S/P hernia surgery History of testicular surgery Family History Mother No problems noted. Father CVD (cardiovascular disease) FH: HTN (hypertension) Diabetes Gastric cancer Daughter Healthy female adolescent Brother Gastric cancer CVD (cardiovascular disease) Maternal Grandfather Lung cancer Social History Housing: Apartment Alcohol intake: never Patient Tobacco Use Status: Former Tobacco user Tobacco use type: Cigarette Cigarettes Per Day: 15 Years Smoked: 25- stopped 02/2023,smoking marijuana e-Cigarette/Vaping Use: Never Used Second Hand Smoke Exposure: Yes service: No Current occupational status: employed and unemployed Cognitive needs: No Hearing needs: No Vision needs: No Review of Systems Const Denies fatigue, Denies fever(s), Denies night sweats, Denies poor appetite and Reports weight loss (Intentional dieting) ENT Denies dental pain, Denies dysphagia, Denies hearing loss, Denies mouth pain, Denies odynophagia, Denies throat swelling, Denies tongue swelling and Reports other (Dentition adequate) Card Reports no additional complaints Resp Reports no additional complaints GI Details: Denies abdominal pain, Denies melena, Denies bloating, Denies hematochezia, Denies constipation, Denies GI cramping, Denies dysphagia, Denies excessive flatus, Denies early satiety, Denies heartburn, Denies diarrhea, Denies nausea, Denies odynophagia, Denies vomiting and Denies hematemesis Skin/Breast Denies pruritus, Denies lesions, Denies rash and Denies jaundice Endo Denies fatigue Aller/Immun Denies throat swelling and Denies tongue swelling Physical Exam Vital Signs: Last Vital Signs Pulse 92 02/15/25 13:00 BP 118/72 02/15/25 13:00 Pulse Ox 97 02/15/25 13:00 Oxygen Delivery Method Room Air 02/15/25 13:00 BMI result Body Mass Index 33.6 Const General: cooperative, healthy appearing and no acute distress Nutritional Appearance: obese Limitations: No language barrier Psych Appearance: grossly normal and well kempt Mental Status: mental status grossly normal Speech and movement: Normal speech and movement present Affect: normal affect Attitude: cooperative Thought process: Normal thought process present Thought content: Normal thought content present Insight: Fair insight present (Psych) and Limited insight present (Psych) Judgement: Fair judgement present (Psych) and Limited judgement present (Psych) Assessment & Plan Assessment & Plan (1) Colonoscopy refused: Code(s): Z53.20 - Procedure and treatment not carried out because of patient's decision for unspecified reasons Category: Medical (2) Family history of colon cancer: Comment: Brother Code(s): Z80.0 - Family history of malignant neoplasm of digestive organs Category: Medical Plan He has serious anxiety/reservations about having colonoscopy. We discuss thoroughly. He also fears the prep process and sterilization issue such as have occurred at other institutions. We thoroughly reviewed the risks versus benefits of procedures including the fact that colon cancer is much easier to prevent that is to treat and that the disease does not tend to give you warning in terms of bowel problems support starts to spread to other organs. We also watch Cologuard video. I let him know that this could be an important data point to help him guide his future decision about whether or not to have a colonoscopy. His younger brother of CRC. He wants to discuss things with his primary care provider and do some research before he decides on any course of treatment. Orders: Orders Colonoscopy - GI Use Only Today Z01.818 - Encounter for other preprocedural examination Medications: New peg 3350-electrolytes 236-22.74-6.74 -5.86 gram (Golytely) until fecal effluent is clear; do not exceed a total volume of 2,000 mL 240 mL PO Q10M 4,000 mL 0RF 1 day Z12.11 - Encounter for screening for malignant neoplasm of colon bisacodyl (Dulcolax (bisacodyl)) 10 mg (2 x 5 mg) PO BEDTIME 4 tabs 0RF 2 days Coding Level of Care Code New Pt Level 3 (78101) Diagnoses Colonoscopy refused Z53.20 Family history of colon cancer Z80.0
[2025-02-15 13:00] VITALS: BP 118/72; PULSE 92; O2SAT 97; BMI 33.6
--- OUTSIDE RECORDS SUMMARY | 2025-02-15 15:21 | XMS_ITS ---
Author Organization [facility] Address [address] [place] [address] Care Team Providers Care Supervisor Finish End Name Role Phone Wallace Esparza Primary Care Provider Caroline Zamorano [phone] REASON FOR VISIT Custom OT Encounters Encounter Location Date Provider Diagnosis [facility] [address] [place] [address] 01/10/2025 Caroline Hodges Plan Of Treatment Next Appt Details Provider Name:Caroline ying, 04/11/2025 02:45:00 PM, [address] [place], [address], Progress Notes * Ramón BUNNDOB:1965 (60 yo M)Acc No.[id number]:01/10/2025 Patient:?Ramón BUNN :1965???Age:59 Y???Sex:Male Address:[address] [place] [address], [address], [place], [address] * * Date:?
--- OUTSIDE RECORDS SUMMARY | 2025-02-15 15:21 | XMS_ITS ---
Author Organization [facility] Address [address] [place] [address] Care Team Providers Care Bus Analyst Name Role Phone Wallace Esparza Primary Care Provider Caroline Zamorano [phone] Cuevas Encounters Encounter Location Date Provider Diagnosis [address] [address] 01/03/2025 Caroline Hodges Plan Of Treatment Next Appt Details Provider Name:Caroline ying, 04/11/2025 02:45:00 PM, [address] [place], [address], Progress Notes * Ramón BUNNDOB:1965 (60 yo M)Acc No.[id number]:01/03/2025 Progress Note Patient:?Ramón BUNN Provider:?Caroline Hodges DPM :1965???Age:59 Y???Sex:Male John e:01/03/2025 Address:[address] [place] [address], [address], [place], [place] Pcp:Wallace Esparza Subjective: * Chief Complaints: * [...] Hodges DPM Date:? Generated for London ryder/Carlos/Leighton on:?02/15/2025 03:21 PM EDT
--- OUTSIDE RECORDS SUMMARY | 2025-02-15 15:22 | XMS_ITS ---
Author Organization [facility] Address [address] [place] [address] Care Team Providers Care Blade Grinder Name Role Phone Wallace Esparza Primary Care Provider Caroline Zamorano Unavailable [phone] Allergies Allergen (clinical drug ingredient) Drug/Non Drug [...] 025 Encounters Encounter Location Date Provider Diagnosis [facility] [address] [place] [address] 01/10/2025 Caroline Hodges Tailor's bunion of left [...] Reason: Provider Name:Caroline ying, 04/11/2025 02:45:00 PM, [address] [place] [address], [phone], Procedure Notes * Category Sub-Category Detail Notes Wart Treatment Procedure Verrucae(s) were debrided to pin-point bleeding margins with sterile surgical blade, silver nitrate chemocautery applied, recomm. immune-boosting meds such as zinc, recomm. follow up with topical chemosurgical agents, Pt defers any other forms of tx (83743) Progress Notes * Ramón BUNNDOB:1965 (59 yo M)Acc No.[id number]:01/10/2025 Progress Note Patient:?Janes BUNNmond Provider:?Caroline Hodges DPM :1965???Age:59 Y???Sex:Male John e:01/10/2025 Address:[address] [place] [address], [facility] [address], [place] Pcp:Wallace Esparza Subjective: * Chief Complaints: * [...] Pt defers any other forms of tx (27120).? * Procedure Codes:?64052 Wart Destruction, 1-14, Modifiers: XS L3000 Prescription [...] Hodges DPM Date:? Generated for Printi ng/Faxing/eTransmitting on:?02/15/2025 03:21 PM EDT History and Physical Notes * HPI (History [...] at 3mm diameter plantar Forefoot LEFT Orthopedic FOOTWEAR EVALUATION: OT were ins pected and noted to be in good condition, [...]
== END 2025-02-15 14:00 | disposition home or self-care (01) ==
LOC: HO.HGI 12:49
PROVIDERS: PCP Internal Medicine; Visit Provider Nurse Practitioner
DX: Z53.20 Procedure and treatment not carried out because of patient's decision for unspecified reasons (principal); Z80.0 Family history of malignant neoplasm of digestive organs
CPT/HCPCS: 99203

== ENCOUNTER → 2025-02-15 12:48 | Outpatient (BNVA) | payer OTHER, SELFPAY | PROVIDERS: PCP Internal Medicine; Visit Provider Nurse Practitioner | DX: Z01.818 Encounter for other preprocedural examination (principal); Z80.0 Family history of malignant neoplasm of digestive organs | CPT/HCPCS: 99202 ==

== ENCOUNTER 2025-04-14 09:46 | Outpatient (REF) | payer OTHER, SELFPAY ==
--- OUTSIDE RECORDS SUMMARY | 2025-04-14 10:12 | XMS_ITS ---
Author Organization [facility] Address [address] [place] [address] Care Team Providers Care Radar Operator Name Role Phone Wallace Esparza Primary Care Provider Caroline Zamorano Unavailable [phone] Allergies Allergen (clinical drug ingredient) Drug/Non Drug Allergy documented on EMR Reaction Allergy Type Onset Date Status Wellbutrin seizures Drug Allergy Active bupropion Bupropion Unknown Drug Allergy Active Latex Latex hives Allergy Active REASON FOR VISIT Wart(s), Foot Pain Medications Medication SIG (Take, Route, Frequency, Duration) Notes Start Date End Date Status hydroCHLOROthiazide 12.5 MG TAKE 1 TABLE T BY MOUTH DAILY Oral for 30 Days Active traMADol HCl 50 MG 1 tablet as needed Orally Once a day Not-Taking Nicotine Polacrilex 2 MG Mouth/Throat fo r 8 Days Active Gabapentin 300 MG 1 capsule Orally Once a day for 30 day(s) Not-Taking Social History Tobacco Use: Social History Observation Description Date Details (start date - stop date) Never Smoker NA - NA Tobacco use other than smoking: Question Answer Notes Are you an other tobacco user? No Tobacco Control (Standard) Question Answer Notes Tobacco use: Nonsmoker Vital Signs Height 6ft1in in 04/11/2025 Weight 255 lbs 04/11/2025 BMI 33.64 kg/m2 04/11/2025 Blood pressure systolic 143 mm Hg 04/11/20 25 Blood pressure diastolic 90 mm Hg 025 Encounters Encounter Location Date Provider Diagnosis [facility] [address] [place] [address] 04/11/2025 Caroline Hodges Tailor's bunion of left foot M21.622 ; Metatarsalgia of left foot M77.42 ; Pain in left foot M79.672 ; Plantar wart B07.0 and Metatarsalgia of right foot M77.41 Assessments Encounter Date Diagnosis (ICD Code) Assessment Notes Treatment Notes Treatment Clinical Notes Section Notes 04/11/2025 Tailor's bunion of left foot (ICD-10 - M21.622) 04/11/2025 Metatarsalgia of left foot (ICD-10 - M77.42) 04/11/2025 Pain in left foot (ICD-10 - M79.672) 04/11/2025 Plantar wart (ICD-10 - B07.0) 04/11/2025 Metatarsalgia of right foot (ICD-10 - M77.41) Plan Of Treatment Next Appt Details Follow Up: 3 Months, Reason: Provider Name:Caroline ying, 07/11/2025 01:30:00 PM, [address] [place] [address], [phone], Procedure Notes * Category Sub-Category Detail Notes Wart Treatment Procedure Verrucae(s) were debrided to pin-point bleeding margins with sterile surgical blade, silver nitrate chemocautery applied, recomm. immune-boosting meds such as zinc, recomm. follow up with topical chemosurgical agents, Pt defers any other forms of tx (71037) Progress Notes * Ramón BUNNDOB:1965 (60 yo M)Acc No.[id number]:04/11/2025 Progress Note Patient:?CELINA Rmaón Provider:?Caroline Hodges DPM :1965???Age:60 Y???Sex:Male John e:04/11/2025 Address:[address] [place] [address], [facility] [address], [place], [place] Pcp:Wallace Esparza Subjective: * Chief Complaints: * ???Wart(s) Foot Pain * HPI: ???Skin problems:?Pt States PCP Visit: ?DATE?12/17/2024 ???Foot Pain:?Nature:?aching tenderness sharp.?Location:?Bottom Outside Forefoot LEFT.?Duration:?several [...] Vitals:?Ht: 6ft1in, Wt:255, BMI:33.64, Shoe size: 13, BP:143/90mm Hg, Ht-cm: 185.42 cm, Wt-k.67 kg. * [...] inflammation to plantar MPJ(s), Plantarflexed MT/MPJ, 5th, LEFT.? Assessment: * Assessment: 1.?Metatarsalgia of left lv t - M77.42 (Primary)???Specify :Chronic problem, Stable (1=3,2=4)???2.?Tailor's bunion of left foot - M21.622???3.?Pain in left foot - M79.672???4.?Plantar wart - B07.0???5.?Metatarsalgia of right foot - M77.41??? Plan: * Treatment: * Procedures:?Wart Treatment:?Procedure?Verrucae(s) were debrided to pin-point bleeding margins with sterile surgical blade, silver nitrate chemocautery applied, recomm. immune-boosting meds such as zinc, recomm. follow up with topical chemosurgical agents, Pt defers any other forms of tx (59833).? * Procedure Codes:?58621 Wart Destruction, 1-14 * Preventive Medicine:? ??Counseling:?Discussion:?-13: Office or other [...] have encouraged the patient to call the office.?Orthotic Dispensing:?The patient presents today for fitting and dispensing of orthotics. The inserts were checked against the prescription and found to be accurate. They were properly fitted to the patients feet and shoes in both weight-bearing and non-weight bearing attitudes. The patient was instructed to gradually increase the amount of time they are wearing the orthoses, starting with one hour the first day and thereon progressively increasing the amount of time used by one hours per day until they are comfortable to be worn all day and with all activities. They were asked to call the office if any signs of skin irritation were noted including redness, blistering or callous formation. The patient verbally indicated a full understanding of all the above information, Handout reviewed and dispensed, The patient signed confirmation form indicating receipt of DME device.? * Follow Up:?3 Months * Images: * Sign off status: Completed true * Provider:?Caroline Hodges, DPM Date:? Generated for [place] ryder/Carlos/eTransmitting on:?04/14/2025 10:12 AM EDT History and Physical Notes * HPI (History of Present Illness) Category Sub-Category Detail Notes Category Not es Skin problems Pt States PCP Visit: DATE: 12/17/2024 Foot Pain Nature: aching tenderness sharp Location: Bottom Outside Foref oot LEFT Duration: several years Course: intermittent Aggravated: any pressure, standi ng, walking Treatments: rest change in shoes innersoles, custom orthotics Examination Category Sub-Category Detail Notes Category Not es Neurological SENSORY: Neurological exa m reveals intact [...] at 3mm diameter plantar Forefoot LEFT Orthopedic MPJ PATHOLOGY: Pain, swelling, and inflammation to [...]
[2025-04-14 11:29] LABS: Estimated Average Glucose 126 mg/dL; Total Hemoglobin (HGBA1C) 3953.5408 umol/L
[2025-04-14 12:16] LABS: Alanine Aminotransferase 20 U/L (0-40); Albumin Level 4.3 g/dL (3.5-5.0); Alkaline Phosphatase 60 U/L (39-117); Anion Gap 12 (12-20); Aspartate Amino Transferase 23 U/L (5-37); Bilirubin Total 0.7 mg/dL (0.0-1.0); Blood Urea Nitrogen 14 mg/dL (9-16); Calcium 9.5 mg/dL (8.4-10.2); Carbon Dioxide 28 mmol/L (22-29); Chloride 104 mmol/L (96-108); Cholesterol 210 mg/dL (<200); Estimated Glomerular Filt Rate > 60; Glucose Random 89 mg/dL (60-115); HDL Cholesterol 40 mg/dL (>40); LDL Cholesterol Calculated 144 mg/dL (<100); Potassium 4.3 mmol/L (3.3-5.1); Sodium 140 mmol/L (135-145); Total Protein 7.5 g/dL (6.5-8.0); Triglycerides 130 mg/dL (<150)
== END 2025-04-14 09:47 | disposition home or self-care (01) ==
LOC: HO.LAB 09:46
PROVIDERS: PCP Internal Medicine; Visit Provider Internal Medicine
DX: E78.00 Pure hypercholesterolemia, unspecified (principal); R73.01 Impaired fasting glucose
CPT/HCPCS: 36415; 80053; 80061; 83036

== ENCOUNTER 2025-04-20 14:11 | Outpatient (AMB) | payer OTHER, SELFPAY ==
[2025-04-20 14:13] VITALS: BP 124/90; PULSE 93; O2SAT 93; BMI 32.9
--- NOTE | 2025-04-20 14:13 | A.OFFPC_ITS ---
Vital Signs 04/20/25 14:13 04/20/25 14:24 Height 6 ft 1 in Weight 249 lb 2 oz BMI 32.9 BP 124/90 H 120/60 Blood Pressure Location Lt brachial Lt brachial Position Sitting Sitting Pulse 93 Pulse Source Pulse Oximeter Pulse Oximetry (%) 93 Oxygen Delivery Method Room Air Intake Visit Reasons: IGT, HTN , Cholesterol Continuity Tester Required: No Accompanied by: Self / Same As Patient Allergies bupropion [From WELLBUTRIN] Allergy (Unknown, Verified 04/20/25 14:14) SYNCOPE, SEIZURE Medication List - Last Reconciled 04/20/25 by Wallace Esparza MD bisacodyl (Dulcolax (bisacodyl)) 10 mg (2 x 5 mg) PO BEDTIME 2 days diclofenac sodium 1% (Voltaren Arthritis Pain) 4 grams topical QID hydrochlorothiazide 25 mg PO DAILY nicotine (polacrilex) 4 mg buccal Q2H peg 3350-electrolytes 236-22.74-6.74 -5.86 gram (Golytely) 240 mL PO Q10M 1 day simvastatin 5 mg PO BEDTIME Tobacco use date assessed: 04/20/25 Dental Screening Dental Screen Date: 04/20/25 Did you have a dental visit in the last 12 months?: No Did you have a dental problem in the last 6 months where you did not have access to dental care?: No Was dental information given to patient?: No PFSH Medical History Blood pressure elevated without history of HTN Elevated blood sugar Tobacco dependence Bladder outlet obstruction BPH (benign prostatic hyperplasia) Low back pain Smoker Surgical History S/P hernia surgery History of testicular surgery Family History Mother No problems noted. Father CVD (cardiovascular disease) FH: HTN (hypertension) Diabetes Gastric cancer Daughter Healthy female adolescent Brother Gastric cancer CVD (cardiovascular disease) Maternal Grandfather Lung cancer Social History Housing: Apartment Alcohol intake: never Patient Tobacco Use Status: Former Tobacco user Tobacco use type: Cigarette Cigarettes Per Day: 15 Years Smoked: 25- stopped 02/2023,smoking marijuana e-Cigarette/Vaping Use: Never Used Second Hand Smoke Exposure: Yes service: No Current occupational status: employed and unemployed Cognitive needs: No Hearing needs: No Vision needs: No Questionnaire PHQ-9 Over the last 2 weeks, how often have you been bothered by any of the following problems? 1. Little interest or pleasure in doing things: not at all 2. Feeling down, depressed, or hopeless: not at all 3. Trouble falling or staying asleep, or sleeping too much: not at all 4. Feeling tired or having little energy: not at all 5. Poor appetite or overeating: not at all 6. Feeling bad about yourself - or that you are a failure or have let yourself or your family down: not at all 7. Trouble concentrating on things, such as reading the newspaper or watching television: not at all 8. Moving or speaking so slowly that other people could have noticed. Or the opposite - being so fidgety or restless that you have been moving around a lot more than usual: not at all 9. Thoughts that you would be better off or of hurting yourself in some way: not at all Total score: 0 Source: Developed by Drs. Prieto Beltran, Avril Trejo, Quinton Kunz and colleagues, with an educational lissette from [employer]. Thrive Questionnaire Date Thrive assessed: 04/20/25 I am a: Patient What is your living situation today?: I have a steady place to live Within the past 12 months, did the food you bought not last and you didn't have the money to get more?: Never true Within the past 12 months, did you worry whether your food would run out before you got money to buy more?: Never true Do you have trouble paying for medicines?: No Do you have trouble getting transportation to medical appointments?: No Do you have trouble paying your heating and electricity bill?: No Do you have trouble taking care of your child, family member or friend?: No Do you have trouble with day-to-day activities such as bathing, preparing meals, shopping, managing finances, etc.?: No Are you currently unemployed and looking for a job?: No Are you interested in more education?: No Please select the resources that you would like help with: None Currently or been in a relationship where the following occur: No concerns reported THRIVE Score: 0 AUDIT C Alcohol Use Questionnaire (AUDIT-C) 1. How often do you have a drink containing alcohol?: Never 3. How often do you have six or more drinks on one occasion?: Never Total Score: 0 ARGETNINA-7 AMB Questionnaire ARGENTINA-7 Date ARGENTINA - 7 assessed: 04/20/25 Feeling nervous, anxious, or on edge: 0 = Not at all Not being able to stop or control worryin = Not at all Worrying too much about different things: 0 = Not at all Trouble relaxin = Not at all Being so restless that it is hard to sit still: 0 = Not at all Becoming easily annoyed or irritable: 0 = Not at all Feeling afraid as if something awful might happen: 0 = Not at all Total ARGENTINA-7 score (0-4 normal; 5-9 mild; 10-14 moderate; 15-21 severe): 0 Source: Developed by Drs. Prieto Beltran, Avril Trejo, Quinton Kunz and colleagues, with an educational lissette from [employer]. Physical exam (Primary Care) Vital Signs: Last Vital Signs Pulse 93 04/20/25 14:13 BP 120/60 04/20/25 14:24 Pulse Ox 93 04/20/25 14:13 Oxygen Delivery Method Room Air 04/20/25 14:13 BMI result Body Mass Index 32.9 Tobacco/Smoking Status: Tobacco use Status Tobacco use date assessed 04/20/25 04/20/25 14:16 Patient Tobacco Use Status Former Tobacco user 04/20/25 14:16 Tobacco use type Cigarette 04/20/25 14:16 e-Cigarette/Vaping Use Never Used 04/20/25 14:16 PHQ-9: PHQ-9 Score PHQ-9: Total score 0 04/20/25 14:22 Thrive Assessment: Date of Thrive Assessment Date Thrive assessed 04/20/25 04/20/25 14:16 Currently or been in a relationship where the following occur: No concerns reported Const General: alert; No acute distress Eyes Conjunctivae: conjunctivae normal Resp Auscultation: clear to auscultation bilaterally Cardio Rate: regular rate Rhythm: regular rhythm GI Inspection: Yes normal to inspection Extrem General: Yes normal to inspection and No edema Coding Level of Care Code Est Pt Level 4 (64977) Complex EM visit Add On G2211 Diagnoses Hypercholesterolemia E78.00 Primary hypertension I10 Hypertension type: primary hypertension Impaired fasting blood sugar R73.01 Obesity (BMI 30-39.9) E66.9 Family history of colon cancer Z80.0 Knee pain, right M25.561 Assessment & Plan Assessment & Plan (1) Hypercholesterolemia: Code(s): E78.00 - Pure hypercholesterolemia, unspecified Category: Social Hx Plan: Avoid fried foods, chicken skin, eggs, butter margarine, pastries and meat. Be it pork or beef they have a lot of cholesterol LDL goal of less than 130 and triglyceride of less than 150 (2) Hypertension: Code(s): I10 - Essential (primary) hypertension Category: Medical Qualifiers: Hypertension type: primary hypertension Qualified Code(s): I10 - Essential (primary) hypertension Plan: Continue with blood pressure medication. Decrease salt intake and exercise on hydrochlorothiazide continuing to monitor blood pressure (3) Impaired fasting blood sugar: Code(s): R73.01 - Impaired fasting glucose Category: Medical Plan: Decrease the amount of carbohydrate intake, pasta, bread, rice and potatoes are all sugar and that is aside from all the sweet stuff, remember that fruits are good but they are Sweet also. (4) Obesity (BMI 30-39.9): Code(s): E66.9 - Obesity, unspecified Category: Medical Plan: Diet and exercise (5) Family history of colon cancer: Comment: Brother Code(s): Z80.0 - Family history of malignant neoplasm of digestive organs Category: Medical Plan: Patient has met with Gastroenterology and has a planned colonoscopy (6) Knee pain, right: Code(s): M25.561 - Pain in right knee Category: Medical Plan History of Present Illness The patient is a 60-year-old male presenting with a follow-up for chronic conditions management. These include obesity with a BMI of 33, hypercholesterolemia with an LDL persistently elevated at 144 mg/dL, and essential hypertension, which improved upon rest to 120/60 mmHg. His impaired glucose tolerance is noted with an HgbA1c of 6.0%. He has been using nicotine gum for over two years while trying to quit, noting the psychological challenge of cessation. Additionally, he reports knee pain, suspected to be due to patellofemoral arthritis, with associated swelling and discomfort in the knee, exacerbated by prolonged activity. This is compounded by chronic sciatica, with pain starting at the hip and extending down the leg. No recent trauma or significant physical stressors were reported, although he has a history of athletic activity. Health Maintenance - Blood pressure management under control with Hydrochlorothiazide - Monitoring hypercholesterolemia with management including lifestyle modifications and a low dose of cholesterol medication - Monitoring impaired glucose tolerance through fasting blood sugar and HgbA1c tests - Nicotine cessation encouraged, avoiding nicotine gum, and suggested transition to regular gum without sugar Social History - Nicotine dependence for over two years, currently using nicotine gum, although attempting cessation - History of athletic activity in younger years Review of Systems - Cardiovascular: Denies persistent hypertension when rested - Musculoskeletal: Reports knee pain with swelling in the patellar region; occasional hip and back pain - Endocrine: Reports impaired glucose tolerance - Genitourinary: History of BPH, no new symptoms reported - Neurological: Reports sciatica with lower extremity discomfort extending from hip Physical Exam - Cardiovascular- Blood pressure measured at 120/60 mmHg after rest - Musculoskeletal- Swelling over the right knee with suspected patellofemoral involvement. No other abnormalities reported. Results - Labs: December blood work with normal counts, creatinine 1.04 mg/dL, fasting blood sugar 89 mg/dL, HgbA1c 6.0%, LDL 144 mg/dL Plan For obesity, the patient is encouraged to continue weight management strategies, including diet and exercise. Hypercholesterolemia is addressed by prescribing a 5 mg dose of a cholesterol-lowering medication to be taken at night, balancing potential benefits against lifestyle factors. The patient's blood pressure is controlled with hydrochlorothiazide, and he is advised to maintain lifestyle habits supportive of blood pressure management. To address impaired glucose tolerance, lifestyle modifications such as diet and exercise are recommended. The knee pain, suspected to be patellofemoral arthritis, is managed with the prescription of diclofenac gel to be applied topically. An x-ray of the knee was ordered to further investigate the cause of the symptoms. Given the patient's sciatica, symptoms may overlap or exacerbate his musculoskeletal discomfort; thus, attention to posture and activity modification might be necessary. Patient was informed and verbally consented to the use of an ambient scribe for clinic note documentation during this visit. Discussion Notes I discussed with the patient the importance of addressing obesity, hypercholesterolemia, and hypertension through lifestyle changes and pharmacological interventions. The rationale for starting a cholesterol-lowering medication was due to persistently elevated cholesterol levels, despite l ifestyle efforts. Risks and benefits were communicated, emphasizing continued dietary regulation. Regarding the knee pain, I recommended an x-ray to evaluate structural concerns, with the application of diclofenac gel to manage symptomatic pain and inflammation locally. Reassessment of blood cholesterol and glucose in three months is planned to evaluate therapeutic effectiveness. Encouragement to discontinue nicotine use was strongly advised, promoting the use of regular gum as a replacement. Patient Instructions - Continue Hydrochlorothiazide for blood pressure maintenance. - Implement diet and exercise modifications for weight management and improved glucose tolerance. - Start cholesterol medication at 5 mg, taking it at night. - Apply diclofenac gel to the knee as directed for pain relief. - Schedule and complete the knee x-ray at the earliest convenience. - Cease nicotine gum use, substituting it with sugar-free regular gum. - Return in 3 months for reevaluation of blood tests and health status. Orders: Orders Hemoglobin A1c 3 Months E78.00 - Pure hypercholesterolemia, unspecified XR knee RT 2V Today M25.561 - Pain in right knee Lipid Panel 3 Months E78.00 - Pure hypercholesterolemia, unspecified Comprehensive Met. Panel 3 Months E78.00 - Pure hypercholesterolemia, unspecified Complete Blood Count Auto Diff 3 Months E78.00 - Pure hypercholesterolemia, u nspecified Medications: New simvastatin 5 mg PO BEDTIME 30 tabs 4RF E78.00 - Pure hypercholesterolemia, unspecified diclofenac sodium 1% (Voltaren Arthritis Pain) apply to single knee, ankle, foot; for foot includes sole/toes/top of foot 4 grams topical QID 100 grams 3RF M25.561 - Pain in right knee
[2025-04-20 14:24] VITALS: BP 120/60
--- OUTSIDE RECORDS SUMMARY | 2025-04-20 16:49 | XMS_ITS | Patient Health Record ---
Author Organization [facility] Address [address] [place] [address] Care Team Providers Care Skip Locator Name Role Phone Wallace Esparza Primary Care Provider Caroline Zamorano Unavailable [phone] Allergies Allergen (clinical drug ingredient) Drug/Non Drug [...] Problem Status W/U Status Risk Notes Problem 13075605 Plantar wart (B07.0) Active confirmed Vital Signs Blood pressure diastolic 90 mm Hg 04/11/2025 Height 6ft1in in 04/11/2025 Blood pressure systolic 143 mm Hg 04/11/2025 Weight 255 lbs 04/11/2025 BMI 33.64 kg/m2 04/11/2025 Encounters Encounter Location Date Provider Diagnosis [address] [address] 07/05/2024 Caroline Hodges Tailor's bunion of left foot M21.622 ; Pain in left foot M79.672 ; Plantar wart B07.0 ; Metatarsalgia of left foot M77.42 and Metatarsalgia of right foot M77.[address] [address] 10/04/2024 Caroline Hodges Tailor's bunion of left foot M21.622 ; Pain in left foot M79.672 ; Plantar wart B07.0 ; Metatarsalgia of left foot M77.42 and Metatarsalgia of right foot M77.[address] [address] 01/10/2025 Caroline Hodges Tailor's bunion of left foot M21.622 ; Metatarsalgia of left foot M77.42 ; Pain in left foot M79.672 ; Plantar wart B07.0 and Metatarsalgia of right foot M77.[address] [address] 04/11/2025 Caroline Hodges Tailor's bunion of left foot M21.622 ; Metatarsalgia of left foot M77.42 ; Pain in left foot M79.672 ; Plantar wart B07.0 and Metatarsalgia of right foot M77.[address] [address] 01/10/2025 Caroline Hodges Assessments Encounter Date Diagnosis (ICD Code) Assessment Notes Treatment Notes Treatment Clinical Notes Section Notes 07/05/2024 Pain in left foot (ICD-10 - M79.672) 07/05/2024 Tailor's bunion of left foot (ICD-10 - M21.622) 10/04/2024 Tailor's bunion of left foot (ICD-10 - M21.622) 01/10/2025 Metatarsalgia of left foot (ICD-10 - M77.42) 01/10/2025 Tailor's bunion of left foot (ICD-10 - M21.622) 04/11/2025 Metatarsalgia of left foot (ICD-10 - M77.42) 04/11/2025 Tailor's bunion of left foot (ICD-10 - M21.622) 04/11/2025 Pain in left foot (ICD-10 - M79.672) 01/10/2025 Pain in left foot (ICD-10 - M79.672) 10/04/2024 Pain in left foot (ICD-10 - M79.672) 07/05/2024 Plantar wart (ICD-10 - B07.0) 07/05/2024 Metatarsalgia of left foot (ICD-10 - M77.42) 10/04/2024 Plantar wart (ICD-10 - B07.0) 01/10/2025 Plantar wart (ICD-10 - B07.0) 04/11/2025 Plantar wart (ICD-10 - B07.0) 04/11/2025 Metatarsalgia of right foot (ICD-10 - M77.41) 10/04/2024 Metatarsalgia of left foot (ICD-10 - M77.42) 01/10/2025 Metatarsalgia of right foot (ICD-10 - M77.41) 07/05/2024 Metatarsalgia of right foot (ICD-10 - M77.41) 10/04/2024 Metatarsalgia of right foot (ICD-10 - M77.41) Plan Of Treatment Pending Test Test Name Order Date X ray : Foot, left 3V 07/01/2022 Next Appt Details Provider Name:Caroline ying, 07/11/2025 01:30:00 PM, [address] [place], [address], Insurance Providers Payer Name Payer Address Payer Phone Subscriber Number Group Number Insured Name Patient Relationship to Insured Coverage Start Date Coverage End Date [facility] [employer] Claims [address] [facility] [place] [address] [id number] Ramón Bunn Self - patient is the insured Medical (General) History Medical History History ICD Code Degenerative Disc disease Back,Hip,and Knee pain Sciatica Warts Chicken pox Surgical History Surgery Date(Month/Year) inguinal hernia repair, right 1988 testicular cyst inguinal hernia repair, left 1993
== END 2025-04-20 14:39 | disposition home or self-care (01) ==
LOC: HO.HMCH 14:12
PROVIDERS: PCP Internal Medicine; Visit Provider Internal Medicine
DX: E78.00 Pure hypercholesterolemia, unspecified (principal); E66.9 Obesity, unspecified; Z68.32 Body mass index [BMI] 32.0-32.9, adult; I10 Essential (primary) hypertension; R73.01 Impaired fasting glucose; Z80.0 Family history of malignant neoplasm of digestive organs; M25.561 Pain in right knee

== ENCOUNTER → 2025-04-20 14:11 | Outpatient (BNVA) | payer OTHER, SELFPAY | PROVIDERS: PCP Internal Medicine; Visit Provider Internal Medicine | DX: I10 Essential (primary) hypertension (principal); E78.00 Pure hypercholesterolemia, unspecified; R73.01 Impaired fasting glucose; E66.9 Obesity, unspecified; M25.561 Pain in right knee; Z80.0 Family history of malignant neoplasm of digestive organs; Z68.33 Body mass index [BMI] 33.0-33.9, adult | CPT/HCPCS: 96127; 99212 ==

== ENCOUNTER 2025-04-28 08:15 | Outpatient (REF) | payer OTHER, SELFPAY ==
--- NOTE | ~2025-04-28 | XR_ITS ---
EXAMINATION: XR KNEE, RIGHT CLINICAL INFORMATION: M25.561 - Pain in right knee COMPARISON: None available. TECHNIQUE: Four views of the right knee. FINDINGS: No fracture, dislocation, or suspicious bone lesion. Normal bone mineralization. Normal alignment. The medial and lateral compartment joint spaces are preserved. There is mild degenerative arthritis in the patellofemoral joint. There is mild spurring of the tibial spines. There is minimal enthesopathic spurring of the superior patella. No significant joint effusion. Soft tissues demonstrate mild vascular calcifications but are otherwise normal. XR/XR knee RT 2V IMPRESSION: 1. No acute findings right knee. Mild patellofemoral degenerative arthritis. Electronically signed by: Jose Linares MD 04/28/2025 08:54 AM EDT
--- OUTSIDE RECORDS SUMMARY | 2025-04-28 08:23 | XMS_ITS | Patient Health Record ---
Author Organization [facility] Address [address] [place] [address] Care Team Providers Care Risk Consulting Treasury Director Name Role Phone Wallace Esparza Primary Care Provider Caroline Zamorano Unavailable [phone] Allergies Allergen (clinical drug ingredient) Drug/Non Drug [...] Problem Status W/U Status Risk Notes Problem [id number] Plantar wart (B07.0) Active confirmed Vital Signs Blood pressure diastolic 90 mm Hg 04/11/2025 Height 6ft1in in 04/11/2025 Blood pressure systolic 143 mm Hg 04/11/2025 Weight 255 lbs 04/11/2025 BMI 33.64 kg/m2 04/11/2025 Encounters Encounter Location Date Provider Diagnosis [address] [address] 07/05/2024 Caroline Hodges Tailor's bunion of left foot M21.622 ; Pain in left foot M79.672 ; Plantar wart B07.0 ; Metatarsalgia of left foot M77.42 and Metatarsalgia of right foot M77.[address] [address] 10/04/2024 Caroline Hodges Tailor's bunion of left foot M21.622 ; Pain in left foot M79.672 ; Plantar wart B07.0 ; Metatarsalgia of left foot M77.42 and Metatarsalgia of right foot M77.[address] [address] 01/10/2025 Caroline Hodges Tailor's bunion of left foot M21.622 ; Metatarsalgia of left foot M77.42 ; Pain in left foot M79.672 ; Plantar wart B07.0 and Metatarsalgia of right foot M77.[address] [address] 04/11/2025 Caroline Hodges Tailor's bunion of left foot M21.622 ; Metatarsalgia of left foot M77.42 ; Pain in left foot M79.672 ; Plantar wart B07.0 and Metatarsalgia of right foot M77.[address] [address] 01/10/2025 Caroline Hodges Assessments Encounter Date Diagnosis [...] Provider Name:Caroline ying, 07/11/2025 01:30:00 PM, [address] [place], [address], Insurance Providers Payer Name Payer Address Payer Phone Subscriber Number Group Number Insured Name Patient Relationship to Insured Coverage Start Date Coverage End Date [facility] [employer] Claims [address] [facility] [place] [address] [id number] Ramón Bunn Self - patient is the insured Medical (General) History Medical History History ICD Code Degenerative Disc disease Back,Hip,and Knee pain Sciatica Warts Chicken pox Surgical History Surgery Date(Month/Year) inguinal hernia repair, right 1988 testicular cyst inguinal hernia repair, left 1993
== END 2025-04-28 08:16 | disposition home or self-care (01) ==
LOC: HO.XRAY 08:15
PROVIDERS: PCP Internal Medicine; Visit Provider Internal Medicine
DX: I10 Essential (primary) hypertension (principal); M25.561 Pain in right knee
CPT/HCPCS: 73560

== ENCOUNTER → 2025-04-28 08:21 | Outpatient (BNV) | payer OTHER, SELFPAY | PROVIDERS: PCP Internal Medicine; Visit Provider Radiology Diagnostic Radiology | DX: M25.561 Pain in right knee (principal) | CPT/HCPCS: 73560 ==

== ENCOUNTER 2025-08-08 08:51 | Outpatient (REF) | payer OTHER, SELFPAY ==
--- OUTSIDE RECORDS SUMMARY | 2025-01-03 09:00 | XMS_ITS ---
Author Organization [facility] Address [address] [place] [address] Care Team Providers Care Web Operations Administrator Name Role Phone Wallace Esparza Primary Care Provider Caroline Zamorano [phone] Cuevas Encounters Encounter Location Date Provider Diagnosis [address] [address] 01/03/2025 Caroline Hodges Plan Of Treatment Next Appt Details Provider Name:Caroline ying, 11/21/2025 01:00:00 PM, [address] [place], [address], Progress Notes * Ramón BUNNDOB:1965 (60 yo M)Acc No.[id number]:01/03/2025 Progress Note Patient: Ramón QUINN Provider: Alon Hodges DPM :1965 A ge:59 Y S ex:Male Date:01/03/2025 Address:[address] [place] [address], [address], [place], [place] Pcp:Wallace Esparza Subjective: * Chief Complaints: * [address] Cuevas. * Medical History: Objective: * Vitals: Assessment: Plan: * Treatment: * Images: * The named appointment provid er may or may not be the originator of this progress note, and it is not deemed complete until electronically signed by the appointment provider. Sign off status: Pending * Provider: Alon Hodges DPM Date: 0 01/03/2025 Generated for London ryder/Carlos/Leighton on: 0 08/08/2025 10:05 AM EDT
--- OUTSIDE RECORDS SUMMARY | 2025-08-08 10:05 | XMS_ITS | Patient Health Record ---
Author Organization [facility] Address [address] [place] [address] Care Team Providers Care Smog Technician Name Role Phone Po Wallace SANDOVAL Primary Care Provider Prieto Wong [phone] Reason For Referral No Information Medications Medication SIG (Take, Route, Frequency, Duration) Notes Start Date End Date Status Baclofen 10 MG TK 1 T PO TID WITH F OOD OR MILK Oral for 20 Active Colyte w Flavor Packs 240 GM as directed Orally as directed for 1 day(s) 05/13/2015 Active traMADol HCl 50 MG TK 1 T PO TID Oral for 20 Active Problems Problem Type SNOMED Code ICD Code Onset Dates Problem Status W/U Status Risk Notes Problem Blood in stool (514711440) Blood in stool (578.1) Active confirmed Plan Of Treatment Future Test Test Name Order Date COLONOSCOPY 05/04/2015 Insurance Providers Payer Name Payer Address Payer Phone Subscriber Number Group Number Insured Name Patient Relationship to Insured Coverage Start Date Coverage End Date MEDICARE OF [place] [address] [place] [id number] MANUEL PATRICK Self - patient is the insured MEDICAID OF [facility] [address] [place] [address] [phone] [id number] MANUEL PATRICK Self - patient is the insured Medical (General) History Medical History History ICD Code Denies ME,DM,CVA,Lung disease,renal dise ase Back pain--sciatica, pinched nerves fr om discs Surgical History Surgery Date(Month/Year) Bilateral inguinal hernia repair 94
--- OUTSIDE RECORDS SUMMARY | 2025-08-08 10:06 | XMS_ITS | Patient Health Record ---
[facility] Organization [facility] Address 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 Phone Wallace Esparza Primary Care Provider Caroline Zamorano Unavailable [phone] Allergies Allergen (clinical drug ingredient) Drug/Non Drug Allergy documented on EMR Reaction Allergy Type Onset Date Status Wellbutrin seizures Drug Allergy Active bupropion Bupropion Unknown Drug Allergy Active Latex Latex hives Allergy Active Reason For Referral No Information Medications Medication SIG (Take, Route, Frequency, Duration) Notes Start Date End Date Status hydroCHLOROthiazide 12.5 MG TAKE 1 TABLE T BY MOUTH DAILY Oral; Duration: 30 Days Active Gabapentin 300 MG 1 capsule Orally Once a day; Duration: 30 day(s) Not-Taking traMADol HCl 50 MG 1 tablet as needed Orally Once a day Not-Taking Nicotine Polacrilex 2 MG Mouth/Throat; Duration: 8 Days Not-Taking Immunizations Vaccine Route Administration Date Status Comme nts Influenza Unknown 07/11/2025 Refused Social History Tobacco Use: Social History Observation [...] (Standard) Question Answer Notes Tobacco use: Nonsmoker AUDIT-C (Standard) Question Answer Notes Did you have a drink containing alcohol in the p ast year? No Points 0 Interpretation Negative Problems Problem Type SNOMED Code ICD Code Onset Dates Problem Status W/U Status Risk Notes Problem Plantar wart (90755567) Plantar wart (B07.0) Active confirmed Vital Signs Blood pressure diastolic 90 mm Hg 07/11/2025 Height 6ft1in in 07/11/2025 Blood pressure systolic 138 mm Hg 07/11/2025 Weight 250 lbs 07/11/2025 BMI 32.98 kg/m2 07/11/2025 Encounters Encounter Location Date Provider Diagnosis [address] [address] 10/04/2024 Caroline Basilioa Tailor's bunion of left foot M21.622 ; Pain in left foot M79.672 ; Plantar wart B07.0 ; Metatarsalgia of left foot M77.42 and Metatarsalgia of right foot M77.[address] [address] 01/10/2025 Caroline Basilioa Tailor's bunion of left foot M21.622 ; Metatarsalgia of left foot M77.42 ; Pain in left foot M79.672 ; Plantar wart B07.0 and Metatarsalgia of right foot M77.[address] [address] 04/11/2025 Caroline Basilioa Tailor's bunion of left foot M21.622 ; Metatarsalgia of left foot M77.42 ; Pain in left foot M79.672 ; Plantar wart B07.0 and Metatarsalgia of right foot M77.[address] [address] 07/11/2025 Caroline Basilioa Tailor's bunion of left foot M21.622 ; Metatarsalgia of left foot M77.42 ; Pain in left foot M79.672 ; Plantar wart B07.0 ; Metatarsalgia of right foot M77.41 and Puncture wound of right foot with foreign body, initial encounter S91.341A [address] [address] 01/10/2025 Caroline Hodges Assessments Encounter Date Diagnosis (ICD Code) Assessment Notes Treatment Notes Treatment Clinical Notes Section Notes 10/04/2024 Tailor's bunion of left foot (ICD-10 - M21.622) 01/10/2025 Metatarsalgia of left foot (ICD-10 - M77.42) 01/10/2025 Tailor's bunion of left foot (ICD-10 - M21.622) 04/11/2025 Metatarsalgia of left foot (ICD-10 - M77.42) 04/11/2025 Tailor's bunion of left foot (ICD-10 - M21.622) 07/11/2025 Metatarsalgia of left foot (ICD-10 - M77.42) 07/11/2025 Tailor's bunion of left foot (ICD-10 - M21.622) 07/11/2025 Pain in left foot (ICD-10 - M79.672) 04/11/2025 Pain in left foot (ICD-10 - M79.672) 01/10/2025 Pain in left foot (ICD-10 - M79.672) 10/04/2024 Pain in left foot (ICD-10 - M79.672) 10/04/2024 Plantar wart (ICD-10 - B07.0) 01/10/2025 Plantar wart (ICD-10 - B07.0) 04/11/2025 Plantar wart (ICD-10 - B07.0) 07/11/2025 Plantar wart (ICD-10 - B07.0) 07/11/2025 Metatarsalgia of right foot (ICD-10 - M77.41) 04/11/2025 Metatarsalgia of right foot (ICD-10 - M77.41) 01/10/2025 Metatarsalgia of right foot (ICD-10 - M77.41) 10/04/2024 Metatarsalgia of left foot (ICD-10 - M77.42) 07/11/2025 Puncture wound of right foot with foreign body, initial encounter (ICD-10 - S91.341A) 10/04/2024 Metatarsalgia of right foot (ICD-10 - M77.41) Plan Of Treatment Pending Test Test Name Order Date X ray : Foot, left 3V 07/01/2022 Next Appt Details Provider Name:Caroline ying, 11/21/2025 01:00:00 PM, [address] [place] [address], [place], [address], Insurance Providers Payer Name Payer Address Payer Phone Subscriber Number Group Number Insured Name Patient Relationship to Insured Coverage Start Date Coverage End Date [facility] SCO Claims [address] [place] [address] [phone] [id number] Ramón Bunn Self - patient is the insured Medical (General) History Medical History History ICD Code Degenerative Disc disease Back,Hip,and Knee pain Sciatica Warts Chicken pox Surgical History Surgery Date(Month/Year) inguinal hernia repair, right 1988 testicular cyst inguinal hernia repair, left 1993
== END 2025-08-08 08:52 | disposition home or self-care (01) ==
LOC: HO.LAB 08:51
PROVIDERS: PCP Internal Medicine; Visit Provider Internal Medicine
DX: Z13.1 Encounter for screening for diabetes mellitus (principal); E78.00 Pure hypercholesterolemia, unspecified
CPT/HCPCS: 36415; 80053; 80061; 83036; 85025

== ENCOUNTER 2025-08-15 14:27 | Outpatient (AMB) | payer OTHER, SELFPAY ==
--- OUTSIDE RECORDS SUMMARY | 2025-01-03 09:00 | XMS_ITS ---
Author Organization [facility] Address [address] [place] [address] Care Team Providers Care Supplier Quality Engineering Manager Name Role Phone Wallace Esparza Primary Care Provider Caroline Zamorano [phone] Cuevas Encounters Encounter Location Date Provider Diagnosis [address] [address] 01/03/2025 Caroline Hodges Plan Of Treatment Next Appt Details Provider Name:Caroline ying, 11/21/2025 01:00:00 PM, [address] [place], [address], Progress Notes * Ramón BUNNDOB:1965 (60 yo M)Acc No.[id number]:01/03/2025 Progress Note Patient: Ramón QUINN Provider: Alon Hodges DPM :1965 A ge:59 Y S ex:Male Date:01/03/2025 Address:[address] [place] [address], [address], [place], [place] Pcp:Wallace Esparza Subjective: * Chief Complaints: * [...] 01/03/2025 Generated for London ryder/Carlos/Leighton on: 0 08/15/2025 03:54 PM EDT
[2025-08-15 14:32] VITALS: BP 130/82; PULSE 92; TEMP 36.3; O2SAT 95; BMI 34.1
--- NOTE | 2025-08-15 14:32 | A.OFFPC_ITS ---
Vital Signs 08/15/25 14:32 Height 6 ft 1 in Weight 258 lb 4 oz BMI 34.1 BP 130/82 Blood Pressure Location Lt brachial Position Sitting Pulse 92 Pulse Source Pulse Oximeter Temp 97.3 F Temp Source Temporal Artery Scan Pulse Oximetry (%) 95 Oxygen Delivery Method Room Air Intake Visit Reasons: 3 month f/u Allergies bupropion (From WELLBUTRIN) Allergy (Unknown, Verified 08/15/25 14:41) SYNCOPE, SEIZURE Medication List - Last Reconciled 08/15/25 by Wallace Esparza MD diclofenac sodium 1% (Voltaren Arthritis Pain) 4 grams topical QID hydrochlorothiazide 25 mg PO DAILY Tobacco use date assessed: 08/15/25 Dental Screening Dental Screen Date: 08/15/25 Did you have a dental visit in the last 12 months?: No Did you have a dental problem in the last 6 months where you did not have access to dental care?: No Was dental information given to patient?: No PFSH Medical History Blood pressure elevated without history of HTN Elevated blood sugar Tobacco dependence Bladder outlet obstruction BPH (benign prostatic hyperplasia) Low back pain Smoker Surgical History S/P hernia surgery History of testicular surgery Family History Mother No problems noted. Father CVD (cardiovascular disease) FH: HTN (hypertension) Diabetes Gastric cancer Daughter Healthy female adolescent Brother Gastric cancer CVD (cardiovascular disease) Maternal Grandfather Lung cancer Social History Housing: Apartment Alcohol intake: never Patient Tobacco Use Status: Former Tobacco user Tobacco use type: Cigarette Cigarettes Per Day: 15 Years Smoked: 25- stopped 02/2023,smoking marijuana e-Cigarette/Vaping Use: Never Used Second Hand Smoke Exposure: Yes service: No Current occupational status: employed and unemployed Cognitive needs: No Hearing needs: No Vision needs: No Questionnaire PHQ-9 Over the last 2 weeks, how often have you been bothered by any of the following problems? 1. Little interest or pleasure in doing things: not at all 2. Feeling down, depressed, or hopeless: not at all 3. Trouble falling or staying asleep, or sleeping too much: not at all 4. Feeling tired or having little energy: not at all 5. Poor appetite or overeating: not at all 6. Feeling bad about yourself - or that you are a failure or have let yourself or your family down: not at all 7. Trouble concentrating on things, such as reading the newspaper or watching television: not at all 8. Moving or speaking so slowly that other people could have noticed. Or the opposite - being so fidgety or restless that you have been moving around a lot more than usual: not at all 9. Thoughts that you would be better off or of hurting yourself in some way: not at all Total score: 0 Source: Developed by Drs. Prieto Beltran, vAril Trejo, Quinton Kunz and colleagues, with an educational lissette from [employer]. Thrive Questionnaire Date Thrive assessed: 04/20/25 I am a: Patient What is your living situation today?: I have a steady place to live Within the past 12 months, did the food you bought not last and you didn't have the money to get more?: Never true Within the past 12 months, did you worry whether your food would run out before you got money to buy more?: Never true Do you have trouble paying for medicines?: No Do you have trouble getting transportation to medical appointments?: No Do you have trouble paying your heating and electricity bill?: No Do you have trouble taking care of your child, family member or friend?: No Do you have trouble with day-to-day activities such as bathing, preparing meals, shopping, managing finances, etc.?: No Are you currently unemployed and looking for a job?: No Are you interested in more education?: No Please select the resources that you would like help with: None Currently or been in a relationship where the following occur: No concerns reported THRIVE Score: 0 AUDIT C Alcohol Use Questionnaire (AUDIT-C) 1. How often do you have a drink containing alcohol?: Never 3. How often do you have six or more drinks on one occasion?: Never Total Score: 0 ARGENTINA-7 AMB Questionnaire ARGENTINA-7 Date ARGENTINA - 7 assessed: 04/20/25 Feeling nervous, anxious, or on edge: 0 = Not at all Not being able to stop or control worryin = Not at all Worrying too much about different things: 0 = Not at all Trouble relaxin = Not at all Being so restless that it is hard to sit still: 0 = Not at all Becoming easily annoyed or irritable: 0 = Not at all Feeling afraid as if something awful might happen: 0 = Not at all Total AR[place]-7 score (0-4 normal; 5-9 mild; 10-14 moderate; 15-21 severe): 0 Source: Developed by Drs. Prieto Beltran, Avril Trejo, Quinton Kunz and colleagues, with an educational lissette from [employer]. Physical exam (Primary Care) Vital Signs: Last Vital Signs Temp 97.3 F 08/15/25 14:32 Pulse 92 08/15/25 14:32 BP 130/82 08/15/25 14:32 Pulse Ox 95 08/15/25 14:32 Oxygen Delivery Method Room Air 08/15/25 14:32 BMI result Body Mass Index 34.1 Tobacco/Smoking Status: Tobacco use Status Tobacco use date assessed 08/15/25 08/15/25 14:43 Patient Tobacco Use Status Former Tobacco user 08/15/25 14:43 Tobacco use type Cigarette 08/15/25 14:43 e-Cigarette/Vaping Use Never Used 08/15/25 14:43 PHQ-9: PHQ-9 Score PHQ-9: Total score 0 08/15/25 14:47 Thrive Assessment: Date of Thrive Assessment Date Thrive assessed 04/20/25 08/15/25 14:43 Currently or been in a relationship where the following occur: No concerns reported Const General: alert; No acute distress Eyes Conjunctivae: conjunctivae normal Resp Auscultation: clear to auscultation bilaterally Cardio Rate: regular rate Rhythm: regular rhythm GI Inspection: Yes normal to inspection Extrem General: Yes normal to inspection and No edema Coding Level of Care Code Est Pt Level 4 (27852) Complex EM visit Add On G2211 Diagnoses Primary hypertension I10 Hypertension type: primary hypertension Hypercholesterolemia E78.00 Impaired fasting blood sugar R73.01 Obesity (BMI 30-39.9) E66.9 BPH (benign prostatic hyperplasia) N40.0 Knee pain, right M25.561 Assessment & Plan Assessment & Plan (1) Hypertension: Code(s): I10 - Essential (primary) hypertension Category: Medical Qualifiers: Hypertension type: primary hypertension Qualified Code(s): I10 - Essential (primary) hypertension Plan: Continue with blood pressure medication. Decrease salt intake and exercise patient on hydrochlorothiazide 25 mg once a day (2) Hypercholesterolemia: Code(s): E78.00 - Pure hypercholesterolemia, unspecified Category: Social Hx Plan: Avoid fried foods, chicken skin, eggs, butter margarine, pastries and meat. Be it pork or beef they have a lot of cholesterol LDL goal of less than 130 and triglyceride of less than 150. On simvastatin 5 mg once a day (3) Impaired fasting blood sugar: Code(s): R73.01 - Impaired fasting glucose Category: Medical Plan: Decrease the amount of carbohydrate intake, pasta, bread, rice and potatoes are all sugar and that is aside from all the sweet stuff, remember that fruits are good but they are Sweet also. (4) Obesity (BMI 30-39.9): Code(s): E66.9 - Obesity, unspecified Category: Medical Plan: Diet and exercise (5) BPH (benign prostatic hyperplasia): Code(s): N40.0 - Benign prostatic hyperplasia without lower urinary tract symptoms Category: Medical Plan: Stable (6) Knee pain, right: Code(s): M25.561 - Pain in right knee Category: Medical Plan History of Present Illness The patient is a 60-year-old male presenting for a follow-up visit. The patient has a history of lumbar degenerative disc disease, which has been a chronic issue. He also has benign prostatic hyperplasia, hypercholesterolemia, hypertension, and impaired glucose tolerance. In April 2025, the patient underwent x-rays which revealed mild patellofemoral degenerative arthritis. The patient's last blood work in July 2023 showed normal blood count and electrolytes, but an increase in creatinine to 1.12 and elevated blood sugar with a hemoglobin A1c of 6.2. The patient has been advised to manage his cholesterol with a goal of LDL less than 130 and triglycerides less than 150, and he is on simvastatin 5 mg once a day. For hypertension, he is taking hydrochlorothiazide 25 mg once a day. The patient has been experiencing knee pain due to arthritis, which has impacted his ability to exercise. He has been advised to consider orthopedic consultation if the pain worsens. Health Maintenance - Cholesterol management with simvastatin and dietary modifications - Blood pressure management with hydrochlorothiazide - Monitoring of blood glucose levels and dietary advice to prevent diabetes - Discussion of shingles and tetanus vaccinations Social History - Exercise: Limited due to knee pain from arthritis - Diet: Consumes a diet high in vegetables, avoids rice and pasta due to family history of diabetes - Smoking: Quit smoking a year and a half ago, leading to weight gain Review of Systems - Musculoskeletal: Reports knee pain due to arthritis, impacting exercise ability - Endocrine: Reports elevated blood sugar levels Physical Exam Results - Labs: Normal blood count, increased creatinine to 1.12, elevated blood sugar, hemoglobin A1c of 6.2 - Imaging: X-rays showing mild patellofemoral degenerative arthritis Plan Patient was informed and verbally consented to the use of an ambient scribe for clinic note documentation during this visit. 1. Hypertension Hypertension is being managed with hydrochlorothiazide 25 mg daily. 2. Benign Prostatic Hyperplasia The patient has benign prostatic hyperplasia, which is being managed as part of his chronic conditions. 3. Mild Patellofemoral Degenerative Arthritis The patient is experiencing knee pain due to mild patellofemoral degenerative arthritis, impacting his ability to exercise. An orthopedic consultation is recommended if the pain worsens. 4. Impaired Glucose Tolerance The patient is advised to monitor blood glucose levels and follow dietary recommendations to prevent progression to diabetes. 5. Hypercholesterolemia The patient is advised to manage hypercholesterolemia with simvastatin 5 mg daily and dietary modifications to achieve an LDL goal of less than 130 and triglycerides less than 150. 6. Lumbar Degenerative Disc Disease The patient has a history of lumbar degenerative disc disease, which is being monitored. Discussion Notes During the visit, I discussed with the patient the importance of managing his cholesterol and blood pressure through medication and lifestyle changes. We reviewed his blood work results, noting the elevated blood sugar and hemoglobin A1c, and emphasized dietary modifications to prevent diabetes. I also advised on the potential need for orthopedic consultation for his knee pain and discussed the benefits of vaccinations such as shingles and tetanus. Patient Instructions - Continue taking hydrochlorothiazide and start simvastatin as prescribed. - Monitor blood sugar levels and follow dietary recommendations to prevent diabetes. - Consider orthopedic consultation if knee pain worsens. - Discuss vaccinations with your pharmacist, including shingles and tetanus. Orders: Orders Thyroid Stimulating Hormone 3 Months E78.00 - Pure hypercholesterolemia, unspecified Free T4 (Free Thyroxine) 3 Months E78.00 - Pure hypercholesterolemia, unspecified Hemoglobin A1c 3 Months E78.00 - Pure hypercholesterolemia, unspecified Comprehensive Met. Panel 3 Months E78.00 - Pure hypercholesterolemia, unspecified Lipid Panel 3 Months E78.00 - Pure hypercholesterolemia, unspecified Referrals Orthopedics Referral M25.561 - Pain in right knee Medications: Refilled simvastatin 5 mg PO BEDTIME 30 tabs 4RF E78.00 - Pure hypercholesterolemia, unspecified Discontinued simvastatin Discontinued Reason: Patient Refused 5 mg PO BEDTIME 30 tabs 4RF E78.00 - Pure hypercholesterolemia, unspecified
--- OUTSIDE RECORDS SUMMARY | 2025-08-15 15:54 | XMS_ITS | Patient Health Record ---
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 Phone Po Wallace SANDOVAL Primary Care Provider Prieto Wong [phone] Reason For Referral No Information Medications Medication [...] Status Risk Notes Problem Blood in stool ([id number]) Blood in stool (578.1) Active confirmed Plan Of Treatment Future Test Test Name Order Date COLONOSCOPY 05/04/2015 Insurance Providers Payer Name Payer Address Payer Phone Subscriber Number Group Number Insured Name Patient Relationship to Insured Coverage Start Date Coverage End Date MEDICARE OF [place] [address] [place] [id number] MANUEL PATRICK Self - patient is the insured MEDICAID OF [facility] [address] [place] [phone] [id number] MANUEL PATRICK Self - patient is the insured Medical (General) History Medical History History ICD Code Denies RI,DM,CVA,Lung disease,renal dise ase Back pain--sciatica, pinched nerves fr om discs Surgical History Surgery Date(Month/Year) Bilateral inguinal hernia repair 94
--- OUTSIDE RECORDS SUMMARY | 2025-08-15 15:54 | XMS_ITS | Patient Health Record ---
Author Organization [facility] Address 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 Role Phone Wallace Esparza Primary Care Provider Caroline Zamorano Unavailable [phone] Allergies Allergen (clinical drug ingredient) Drug/Non Drug [...] W/U Status Risk Notes Problem Plantar wart ([id number]) Plantar wart (B07.0) Active confirmed Vital Signs Blood pressure diastolic 90 mm Hg 07/11/2025 Height 6ft1in in 07/11/2025 Blood pressure systolic 138 mm Hg 07/11/2025 Weight 250 lbs 07/11/2025 BMI 32.98 kg/m2 07/11/2025 Encounters Encounter Location Date Provider Diagnosis [address] [address] 10/04/2024 Caroline Basilioa Tailor's bunion of left foot M21.622 ; Pain in left foot M79.672 ; Plantar wart B07.0 ; Metatarsalgia of left foot M77.42 and Metatarsalgia of right foot M77.[address] [address] 01/10/2025 Caroline Basilioa Tailor's bunion of left foot M21.622 ; Metatarsalgia of left foot M77.42 ; Pain in left foot M79.672 ; Plantar wart B07.0 and Metatarsalgia of right foot M77.[address] [address] 04/11/2025 Caroline Basilioa Tailor's bunion of left foot M21.622 ; Metatarsalgia of left foot M77.42 ; Pain in left foot M79.672 ; Plantar wart B07.0 and Metatarsalgia of right foot M77.[address] [address] 07/11/2025 Caroline Basilioa Tailor's bunion of left foot M21.622 ; Metatarsalgia of left foot M77.42 ; Pain in left foot M79.672 ; Plantar wart B07.0 ; Metatarsalgia of right foot M77.41 and Puncture wound of right foot with foreign body, initial encounter S91.341A [address] [address] 01/10/2025 Caroline Hodges Assessments Encounter Date Diagnosis [...] Details Provider Name:Caroline ying, 11/21/2025 01:00:00 PM, [address] [place] [address], [place], [address], Insurance Providers Payer Name Payer Address Payer Phone Subscriber Number Group Number Insured Name Patient Relationship to Insured Coverage Start Date Coverage End Date [facility] SCO Claims [address] [place] [phone] [id number] Ramón Bunn Self - patient is the insured Medical (General) History Medical History History ICD Code Degenerative Disc disease Back,Hip,and Knee pain Sciatica Warts Chicken pox Surgical History Surgery Date(Month/Year) inguinal hernia repair, right 1988 testicular cyst inguinal hernia repair, left 1993
== END 2025-08-15 15:07 | disposition home or self-care (01) ==
LOC: HO.HMCH 14:28
PROVIDERS: PCP Internal Medicine; Visit Provider Internal Medicine
DX: I10 Essential (primary) hypertension (principal); E78.00 Pure hypercholesterolemia, unspecified; E66.9 Obesity, unspecified; Z68.34 Body mass index [BMI] 34.0-34.9, adult; R73.01 Impaired fasting glucose; N40.0 Benign prostatic hyperplasia without lower urinary tract symptoms; M25.561 Pain in right knee

== ENCOUNTER → 2025-08-15 14:27 | Outpatient (BNVA) | payer OTHER, SELFPAY | PROVIDERS: PCP Internal Medicine; Visit Provider Internal Medicine | DX: I10 Essential (primary) hypertension (principal); E78.00 Pure hypercholesterolemia, unspecified; R73.01 Impaired fasting glucose; E66.9 Obesity, unspecified; N40.0 Benign prostatic hyperplasia without lower urinary tract symptoms; M25.561 Pain in right knee; M51.369 Other intervertebral disc degeneration, lumbar region without mention of lumbar back pain or lower extremity pain | CPT/HCPCS: 96127; 99212 ==